=== PATIENT | female | born 1965 | race Caucasian/White ===

== ENCOUNTER 2017-11-05 21:58 | Emergency (ER) | payer OTHER ==
[2017-11-05 22:10] VITALS: BP 116/86
[2017-11-05] MEDS ORDERED: Ketorolac 30 MG/ML SDV IM ONE (22:32)
[2017-11-05] MEDS ORDERED: predniSONE 20 MG Tab PO STA (22:32)
--- NOTE | 2017-11-05 22:39 | EDM.PDOC ---
ED HPI GENERAL MEDICAL PROBLEM - General Chief Complaint: ENT Problem Stated Complaint: POSS EAR INFECTION SORE THROAT Time Seen by Provider: 11/05/17 22:15 Source of Information: Reports: Patient History Limitations: Reports: No Limitations - History of Present Illness INITIAL COMMENTS - FREE TEXT/NARRATIVE: Maribeth is a 52yo female presents ambulatory with caroline for complaints of ear pain and sore throat x 2-3 weeks. Ear pain is worse the past 7 days. She has 10/10 ear pain and "pressure" to both ears, right is worse than left. She has neck pain and tenderness down area of eustacean tube worse to the right side. She is not coughing, denies f/c/s. She has a headache with this, no n/v/d. She is fatigued and run down as she cannot sleep due to ear pain and pressure. She was seen at [facility] and rx'd flonase which has not helped; second time was rx'd antibiotic which she has taken for 4 days without improvements. Treatments [employer]: Reports: Other (see below) Other Treatments [employer]: antibiotic Ear Pain Score (Numeric/FACES): 10 - Related Data Allergies Allergy/AdvReac Type Severity Reaction Status Date / Time penicillin Allergy Hives Verified 04/04/16 08:50 bees Allergy Swelling Uncoded 06/26/15 15:38 Home Meds: Home Meds DULoxetine [Cymbalta] 30 mg PO TID 06/26/15 [History] Gabapentin [Neurontin] 900 mg PO TID 06/26/15 [History] Levothyroxine [Synthroid] 88 mcg PO DAILY 06/26/15 [History] Celecoxib [CeleBREX] 200 mg PO DAILY 11/05/17 [History] Clarithromycin [Clarithromycin] 500 mg PO BID 11/05/17 [History] Past Medical History Gastrointestinal History: Reports: Other (See Below) Other Gastrointestinal History: COLITIS, stomach ulcers Other OB/BYN History: lumpectomy x2 Musculoskeletal History: Reports: Connective Tissue Disease, Fibromyalgia Other Neuro History: fibromalgia Psychiatric History: Reports: Depression Endocrine/Metabolic History: Reports: Other (See Below) Other Endocrine/Metabolic History: Hashimotos Social & Family History - Tobacco Use Smoking Status *Q: Current Every Day Smoker Years of Tobacco use: 30 Packs/Tins Daily: 0.5 - Recreational Drug Use Recreational Drug Use: Yes ED ROS ENT - Review of Systems Review Of Systems: See Below Constitutional: Reports: Malaise, Weakness, Fatigue. Denies: Fever, Chills HEENT: Reports: Ear Pain, Sinus Problem (sinus pressure and pain worse to right side), Throat Pain. Denies: Vertigo, Vision Change Respiratory: Reports: No Symptoms. Denies: Shortness of Breath, Cough Cardiovascular: Reports: No Symptoms GI/Abdominal: Reports: No Symptoms Musculoskeletal: Reports: Neck Pain Neurological: Reports: No Symptoms ED EXAM, ENT - Physical Exam Exam: See Below Exam Limited By: No Limitations General Appearance: Alert, WD/WN, No Apparent Distress, Other (appears ill) Eye Exam: Bilateral Eye: EOMI, PERRL Ears: Normal External Exam, Normal Canal, Hearing Grossly Normal, TM Dullness, TM Erythema, TM Fluid, Other (no mastoid pain ) Nose: Normal Inspection Mouth/Throat: Normal Teeth, Pharyngeal Erythema (no exudates noted) Head: Atraumatic, Normocephalic Neck: Supple, Lymphadenopathy (L), Lymphadenopathy (R) (tender) Respiratory/Chest: No Respiratory Distress, Lungs Clear, Normal Breath Sounds Cardiovascular: Regular Rate, Rhythm, No Edema GI/Abdominal: Normal Bowel Sounds, Soft, Non-Tender (Female) Exam: Deferred Rectal (Female) Exam: Deferred Extremities: Normal Inspection Neurological: Alert, Oriented, Normal Cognition Psychiatric: Normal Affect, Normal Mood Skin: Warm, Dry Course - Vital Signs Last Recorded V/S: Last Vital Signs Temp 96.5 F 11/05/17 22:08 Pulse 74 11/05/17 22:08 Resp 20 11/05/17 22:08 BP 116/86 11/05/17 22:08 Pulse Ox 97 11/05/17 22:08 - Orders/Labs/Meds Orders: Active Orders 24 hr Category Date Time Status cefTRIAXone [Rocephin] 0.5 gm Med 11/05/17 22:45 Active Lidocaine 1% [Xylocaine 1%] 1 ml IM Q24H Medication Orders Ceftriaxone Sodium 0.5 gm/ (Lidocaine HCl 1 ml) 0 gm IM Q24H LINDA Last Admin: 11/05/17 22:51 Dose: 1.2 inj Meds: Medications Generic Name Dose Route Start Last Admin Trade Name Freq PRN Reason Stop Dose Admin Ceftriaxone Sodium 0.5 gm/ 0 gm 11/05/17 22:45 11/05/17 22:51 Lidocaine HCl 1 ml IM 1.2 inj Q24H LINDA Administration Discontinued Medications Generic Name Dose Route Start Last Admin Trade Name Satya PRN Reason Stop Dose Admin Ketorolac Tromethamine 30 mg 11/05/17 22:32 11/05/17 22:50 Toradol IM 11/05/17 22:33 30 mg ONETIME ONE Administration Prednisone 40 mg 11/05/17 22:32 11/05/17 22:50 Prednisone PO 11/05/17 22:33 40 mg NOW STA Administration Departure - Departure Time of Disposition: 22:39 Disposition: Home, Self-Care 01 Clinical Impression: Otitis media Qualifiers: Otitis media type: serous Chronicity: acute Laterality: bilateral Recurrence: not specified as recurrent Qualified Code(s): H65.03 - Acute serous otitis media , bilateral Pharyngitis Qualifiers: Pharyngitis/tonsillitis etiology: unspecified etiology Qualified Code(s): J02.9 - Acute pharyngitis, unspecified - Discharge Information Referrals: Chris Baker MD [Primary Care Provider] - Forms: ED Department Discharge Additional Instructions: Continue with prior oral antibiotic tomorrow Take medrol pack (steroid pack) as instructed Push fluids Probiotic once daily Salt water gargles Continue with flonase twice daily Motrin/tylenol for pain Follow up with PCP Dr. Baker if not improved by 72 hours. May return to work on 11/09/17--. - My Orders Last 24 Hours: My Active Orders 11/05/17 22:45 cefTRIAXone [Rocephin] 0.5 gm Lidocaine 1% [Xylocaine 1%] 1 ml IM Q24H - Assessment/Plan Last 24 Hours: My Active Orders 11/05/17 22:45 cefTRIAXone [Rocephin] 0.5 gm Lidocaine 1% [Xylocaine 1%] 1 ml IM Q24H
[2017-11-05] MEDS ORDERED: cefTRIAXone 0.5 GM, Lidocaine 1% 1 ML IM SCH ×2 (22:45)
== END 2017-11-05 23:09 | disposition home or self-care (01) ==
LOC: JD.ED 21:58
DX: H65.03 Acute serous otitis media, bilateral (principal); J02.9 Acute pharyngitis, unspecified; F17.210 Nicotine dependence, cigarettes, uncomplicated; Z88.0 Allergy status to penicillin; Z91.030 Bee allergy status
CPT/HCPCS: 96372; 99283; A9270; J0696; J1885

== ENCOUNTER 2017-11-29 14:07 | Emergency (ER) | payer OTHER, SELFPAY ==
[2017-11-29 14:15] VITALS: BP 115/78
--- NOTE | 2017-11-29 15:00 | EDM.PDOC ---
ED HPI GENERAL MEDICAL PROBLEM - General Chief Complaint: Gastrointestinal Problem Stated Complaint: VOMITING-SENT FROM CLINIC Time Seen by Provider: 11/29/17 15:00 Source of Information: Reports: Patient - History of Present Illness INITIAL COMMENTS - FREE TEXT/NARRATIVE: Patient is here for evaluation for sinus pain, ear pain as well as nausea/ vomiting. Patient reports that she has recently been on 2 courses of antibiotics, Biaxin and Levaquin as well as extended course of prednisone for her persistent sinus infection. She's feels that symptoms have not improved whatsoever. She is also stating that now she has a cough and overall feels unwell. She is not eating well due to decreased appetite, she is tolerating fluids but no she's not drinking as much as she is supposed to. She continues on the fluticasone spray but has not been taking her antihistamine. Headache Pain Score (Numeric/FACES): 7 - Related Data Allergies Allergy/AdvReac Type Severity Reaction Status Date / Time penicillin Allergy Hives Verified 04/04/16 08:50 bees Allergy Swelling Uncoded 06/26/15 15:38 Home Meds: Home Meds DULoxetine [Cymbalta] 30 mg PO TID 06/26/15 [History] Gabapentin [Neurontin] 900 mg PO TID 06/26/15 [History] Levothyroxine [Synthroid] 88 mcg PO DAILY 06/26/15 [History] Celecoxib [CeleBREX] 200 mg PO DAILY 11/05/17 [History] rOPINIRole [Requip] 0.25 mg PO BEDTIME 11/29/17 [History] Past Medical History 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 Other OB/BYN History: lumpectomy x2 Musculoskeletal History: Reports: Connective Tissue Disease, Fibromyalgia Other Neuro History: fibromalgia Psychiatric History: Reports: Depression Endocrine/Metabolic History: Reports: Other (See Below) Other Endocrine/Metabolic History: Hashimotos Social & Family History - Tobacco Use Smoking Status *Q: Current Every Day Smoker Years of Tobacco use: 3 Packs/Tins Daily: 0.4 Used Tobacco, but Quit: No Second Hand Smoke Exposure: No - Caffeine Use Caffeine Use: Reports: Coffee, Tea - Recreational Drug Use Recreational Drug Use: No ED ROS GENERAL - Review of Systems Review Of Systems: See Below Constitutional: Reports: Fever, Chills, Fatigue, Decreased Appetite. Denies: Malaise HEENT: Reports: Ear Pain, Rhinitis, Sinus Problem. Denies: Ear Discharge, Throat Pain Respiratory: Reports: Cough, Sputum. Denies: Shortness of Breath, Wheezing Cardiovascular: Reports: No Symptoms GI/Abdominal: Reports: Decreased Appetite, Nausea, Vomiting. Denies: Abdominal Pain, Black Stool, Bloody Stool, Hematemesis, Hematochezia, Melena Musculoskeletal: Reports: No Symptoms Skin: Reports: No Symptoms ED EXAM, GI/ABD - Physical Exam Exam: See Below Exam Limited By: No Limitations General Appearance: Alert, WD/WN, Mild Distress Eyes: Bilateral: Normal Appearance Ears: Normal External Exam, Normal Canal, Other (TM bulging and erythematous) Nose: Normal Inspection, Normal Mucosa, Nasal Drainage (Purulent) Throat/Mouth: Normal Inspection, Normal Oropharynx Neck: Normal Inspection, Supple, Non-Tender Respiratory/Chest: No Respiratory Distress, Crackles (Right lung base). No: Wheezing Cardiovascular: Normal Peripheral Pulses, Regular Rate, Rhythm, No Murmur Neurological: Alert, Oriented Psychiatric: Normal Affect, Normal Mood Skin Exam: Warm, Dry, Intact Course - Vital Signs Last Recorded V/S: Last Vital Signs Temp 97 F 11/29/17 14:11 Pulse 90 11/29/17 14:11 Resp 22 H 11/29/17 14:11 BP 115/78 11/29/17 14:11 Pulse Ox 99 11/29/17 14:11 - Orders/Labs/Meds Orders: Active Orders 24 hr Category Date Time Status Sodium Chloride 0.9% [Normal Saline] 1,000 ml Med 11/29/17 17:39 Active IV ONETIME Sodium Chloride 0.9% [Saline Flush] Med 11/29/17 16:41 Active 10 ml FLUSH ONETIME PRN Medication Orders Sodium Chloride (Normal Saline) 1,000 mls @ 250 mls/hr IV ONETIME ONE Stop: 11/29/17 21:38 Last Admin: 11/29/17 17:57 Dose: 250 mls/hr Sodium Chloride (Saline Flush) 10 ml FLUSH ONETIME PRN PRN Reason: IV FLUSH Last Admin: 11/29/17 17:10 Dose: 10 ml Labs: Laboratory Tests 11/29/17 11/29/17 Range/Units 14:10 14:10 WBC 14.66 H (3.98-10.04) K/mm3 RBC 4.41 (3.98-5.22) M/mm3 Hgb 13.3 (11.2-15.7) gm/L Hct 40.2 (34.1-44.9) % MCV 91.2 (79.4-94.8) fl MCH 30.2 (25.6-32.2) pg MCHC 33.1 (32.2-35.5) g/dl RDW Std Deviation 44.6 (36.4-46.3) fL Plt Count 490 H (182-369) K/mm3 MPV 10.2 (9.4-12.3) fl Neutrophils % (Manual) 67 H (40-60) % Band Neutrophils % 0 (0-10) % Lymphocytes % (Manual) 26 (20-40) % Atypical Lymphs % 0 % Monocytes % (Manual) 5 (2-10) % Eosinophils % (Manual) 1 (0.7-5.8) % Basophils % (Manual) 1 (0.1-1.2) Platelet Estimate Adequate RBC Morph Comment Normal Sodium 135 L (136-145) mEq/L Potassium 4.2 (3.5-5.1) mEq/L Chloride 99 (98-107) mEq/L Carbon Dioxide 30 (21-32) mEq/L Anion Gap 10.2 (5-15) BUN 9 (7-18) mg/dL Creatinine 0.7 (0.55-1.02) mg/dL Est Cr Clr Drug Dosing 74.35 mL/min Estimated GFR (MDRD) > 60 (>60) mL/min BUN/Creatinine Ratio 12.9 L (14-18) Glucose 124 H (74-106) mg/dL Calcium 9.8 (8.5-10.1) mg/dL Total Bilirubin 0.5 (0.2-1.0) mg/dL AST 16 (15-37) U/L ALT 22 (14-59) U/L Alkaline Phosphatase 73 (46-116) U/L C-Reactive Protein 8.8 H* (<1.0) mg/dL Total Protein 8.3 H (6.4-8.2) g/dl Albumin 3.6 (3.4-5.0) g/dl Globulin 4.7 gm/dL Albumin/Globulin Ratio 0.8 L (1-2) Meds: Medications Generic Name Dose Route Start Last Admin Trade Name Freq PRN Reason Stop Dose Admin Sodium Chloride 1,000 mls @ 250 mls/hr 11/29/17 17:39 11/29/17 17:57 Normal Saline IV 11/29/17 21:38 250 mls/hr ONETIME ONE Administration Sodium Chloride 10 ml 11/29/17 16:41 11/29/17 17:10 Saline Flush FLUSH 10 ml ONETIME PRN Administration IV FLUSH Discontinued Medications Generic Name Dose Route Start Last Admin Trade Name Freq PRN Reason Stop Dose Admin Sodium Chloride 1,000 mls @ 999 mls/hr 11/29/17 15:15 11/29/17 15:22 Normal Saline IV 11/29/17 16:15 999 mls/hr ONETIME ONE Administration Iopamidol 100 ml 11/29/17 16:41 11/29/17 17:10 Isovue-300 (61%) IVPUSH 11/29/17 16:42 80 ml ONETIME ONE Administration Ketorolac Tromethamine 30 mg 11/29/17 15:15 11/29/17 15:24 Toradol IVPUSH 11/29/17 15:16 30 mg ONETIME ONE Administration Lorazepam 1 mg 11/29/17 16:26 11/29/17 16:47 Ativan PO 11/29/17 16:27 1 mg ONETIME ONE Administration Ondansetron HCl 4 mg 11/29/17 15:15 11/29/17 15:22 Zofran IVPUSH 11/29/17 15:16 4 mg ONETIME ONE Administration - Re-Assessments/Exams Free Text/Narrative Re-Assessment/Exam: Patient continues to have bilateral AOM despite 2 courses of antibiotics and prednisone. Coarse lung sounds to the right base. WBC 14,660 with 67% neutrophils and no bands. CRP is 8.8. Chest x-ray demonstrates slight increased density in the right cardiophrenic angle as well as pleural thickening in the left apex. Will get a sinus CT as well as CT of the chest with contrast to further evaluate. 11/29/17 16:35 Patient feeling significantly better with Zofran for the nausea as well as IV fluids. She is resting comfortably in bed and requesting to go home. Referral will be entered for patient's persistent otitis media infection from her PCP. She does have persistent congestion as well the CT of the sinuses demonstrated no abnormality. CT of the chest demonstrated: #1 density within the left lung apex as well as smaller parenchymal density within the right lung apex. Additional parenchymal density within the right cardiophrenic angle is confirmed. Uncertain if this represents prominent areas of scarring or could represent neoplastic change. Recommend PET scan for further to further evaluate. #2 small hiatal hernia is noted. #3 no additional abnormalities seen on the CT of the chest. PET scan will be ordered through the clinic. With infectious symptoms clinically will treat with 1 more week of Levaquin. Patient will follow up with PCP next week or certainly return to the emergency room if needed sooner. 11/29/17 19:26 Departure - Departure Time of Disposition: 19:24 Disposition: Home, Self-Care 01 Condition: Fair Clinical Impression: Recurrent AOM (acute otitis media) of both ears, Nausea, Lung nodule - Discharge Information Referrals: Ana Wheat [employer] [Primary Care Provider] - Forms: ED Department Discharge Additional Instructions: Take the full course of Levaquin. I recommended probiotic with this to help with preventing diarrhea. Lots of rest, fluids. Ibuprofen or Tylenol as needed for pain. Continue antihistamine and Fluticasone spray. You should be contacted by the clinic with an appointment for a PET scan as well as an consult with ENT. If you do not hear from the clinic by 2 PM tomorrow please call in and discuss this with nursing. Follow-up with your PCP next week or certainly return to the emergency room if needed. - My Orders Last 24 Hours: My Active Orders 11/29/17 16:41 Sodium Chloride 0.9% [Saline Flush] 10 ml FLUSH ONETIME PRN 11/29/17 17:39 Sodium Chloride 0.9% [Normal Saline] 1,000 ml IV ONETIME - Assessment/Plan Last 24 Hours: My Active Orders 11/29/17 16:41 Sodium Chloride 0.9% [Saline Flush] 10 ml FLUSH ONETIME PRN 11/29/17 17:39 Sodium Chloride 0.9% [Normal Saline] 1,000 ml IV ONETIME
[2017-11-29] MEDS ORDERED: Ondansetron 4 MG/2 ML SDV IVPUSH ONE (15:15)
[2017-11-29] MEDS ORDERED: Sodium Chloride 0.9% 1,000 ML IV ONE ×2 (15:15→17:39)
[2017-11-29] MEDS ORDERED: Ketorolac 30 MG/ML SDV IVPUSH ONE (15:15)
--- NOTE | 2017-11-29 16:14 | CR ---
Chest: Two views of the chest were obtained. Comparison: No prior chest x-ray. Slight increased density is noted within the right cardiophrenic angle. Apical pleural thickening is seen on the left side. Lungs otherwise are clear. Bony structures are unremarkable. Heart size and mediastinum are normal. Impression: 1. Apical pleural thickening on the left side as well as slight increased density within the right cardiophrenic angle. Contrast enhanced chest CT recommended to further evaluate. Diagnostic code #9
[2017-11-29] MEDS ORDERED: LORazepam 1 MG Tab PO ONE (16:26)
[2017-11-29] MEDS ORDERED: Sodium Chloride 0.9% 10 ML Syringe FLUSH PRN (16:41)
[2017-11-29] MEDS ORDERED: Iopamidol 612 MG/ML 100 ML Bottle IVPUSH ONE (16:41)
--- NOTE | 2017-11-29 17:55 | CT ---
CT paranasal sinuses Technique: Multiple axial sections through the paranasal sinuses were obtained. Reconstructed coronal and sagittal images were obtained. Findings: Paranasal sinuses are clear. No mucosal thickening or air-fluid levels are seen. Mastoid sinuses are also clear. Middle ear cavities are clear. Impression: 1. No abnormality is seen on CT study of the paranasal sinuses. Diagnostic code #1
--- NOTE | 2017-11-29 17:59 | CT ---
CT chest Technique: Multiple axial sections were obtained from above the lung apices inferiorly through the lung bases. Intravenous contrast was utilized. Comparison: Recent chest x-ray performed earlier on the same day (3:19 PM). Findings: Parenchymal density is noted within the left lung apex. Smaller parenchymal density is noted within the right lung apex. Focal parenchymal density also seen within the right cardiophrenic angle. No mediastinal adenopathy is seen. No pericardial thickening is seen. Small portion of the visualized lung apices are clear. Lungs otherwise are clear. Small hiatal hernia is present. Bone window settings were reviewed which appears within normal limits for the patient's age. Impression: 1. Density within left lung apex as well as smaller parenchymal density within the right lung apex. Additional parenchymal density within right cardiophrenic angle is confirmed. Uncertain if this represents prominent areas of scarring or could represent neoplastic change. Recommend PET imaging to further evaluate. 2. Small hiatal hernia is noted. 3. No additional abnormality is seen on CT study of the chest. Diagnostic code #9
== END 2017-11-29 19:45 | disposition home or self-care (01) ==
LOC: JD.ED 14:07
DX: H66.93 Otitis media, unspecified, bilateral (principal); R91.1 Solitary pulmonary nodule; F17.210 Nicotine dependence, cigarettes, uncomplicated; Z88.0 Allergy status to penicillin; Z91.030 Bee allergy status; Z79.899 Other long term (current) drug therapy
CPT/HCPCS: 36415; 70486; 71046; 71260; 80053; 85025; 86140; 96361; 96374; 96375; 99284; A9270; J1885; J2405; J7040; J7050; Q9967

== ENCOUNTER 2017-12-11 03:15 | Emergency (ER) | payer OTHER ==
[2017-12-11 03:22] VITALS: BP 106/76
[2017-12-11] MEDS ORDERED: Sodium Chloride 0.9% 10 ML Syringe FLUSH PRN (03:33)
[2017-12-11] MEDS ORDERED: HYDROmorphone 1 MG/ML Syringe IVPUSH ONE (03:34)
[2017-12-11] MEDS ORDERED: Aspirin 81 MG Tab.Chew PO ONE (03:34)
--- NOTE | 2017-12-11 04:36 | EDM.PDOC ---
ED HPI GENERAL MEDICAL PROBLEM - General Chief Complaint: Chest Pain Stated Complaint: CHEST PAINS Time Seen by Provider: 12/11/17 03:26 Source of Information: Reports: Patient History Limitations: Reports: No Limitations - History of Present Illness INITIAL COMMENTS - FREE TEXT/NARRATIVE: The patient presents with crushing chest pain. This started early this morning at 2am. It work her up. She has some shortness of breath with it. The pain radiates into both shoulders. She has no fever, chills, cough, abdominal pain, nausea or vomiting. The patient was recently seen here and a CT of her chest was done. It did show lesions in her chest that were thought of to be neoplastic. She had a follow up PET scan and it did confirm this could be a neoplasm. The next step is a biopsy. She quit smoking 2 days ago. Onset: Sudden Duration: Hour(s): (2am) Location: Reports: Chest Quality: Reports: Other (crushing) Severity: Severe Improves with: Reports: None Worsens with: Reports: None Context: Reports: Other (sleeping) Associated Symptoms: Reports: Chest Pain, Shortness of Breath. Denies: Cough, Fever/Chills, Headaches, Nausea/Vomiting Chest Pain Score (Numeric/FACES): 10 - Related Data Allergies Allergy/AdvReac Type Severity Reaction Status Date / Time penicillin Allergy Hives Verified 12/11/17 03:19 bees Allergy Swelling Uncoded 12/11/17 03:19 Home Meds: Home Meds DULoxetine [Cymbalta] 30 mg PO TID 06/26/15 [History] Gabapentin [Neurontin] 900 mg PO TID 06/26/15 [History] Levothyroxine [Synthroid] 88 mcg PO DAILY 06/26/15 [History] Celecoxib [CeleBREX] 200 mg PO DAILY 11/05/17 [History] rOPINIRole [Requip] 0.25 mg PO BEDTIME 11/29/17 [History] LORazepam [Ativan] 0.5 mg PO Q8H PRN #20 tab 12/11/17 [Rx] Past Medical History HEENT History: Reports: Otitis Media Respiratory History: Reports: Other (See Below) Other Respiratory History: "spots on lungs" Needs to have biopsy done. 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 Other OB/BYN History: lumpectomy x2 Musculoskeletal History: Reports: Connective Tissue Disease, Fibromyalgia Other Neuro History: fibromalgia Psychiatric History: Reports: Depression Endocrine/Metabolic History: Reports: Other (See Below) Other Endocrine/Metabolic History: Hashimotos - Past Surgical History Musculoskeletal Surgical History: Reports: Arthroscopic Knee Social & Family History - Tobacco Use Smoking Status *Q: Former Smoker Years of Tobacco use: 3 Packs/Tins Daily: 0.4 Used Tobacco, but Quit: Yes Month Tobacco Last Used: 11/2017 Second Hand Smoke Exposure: No - Caffeine Use Caffeine Use: Reports: Coffee, Tea - Recreational Drug Use Recreational Drug Use: No ED ROS GENERAL - Review of Systems Review Of Systems: See Below Constitutional: Reports: No Symptoms HEENT: Reports: No Symptoms Respiratory: Reports: Shortness of Breath Cardiovascular: Reports: Chest Pain Endocrine: Reports: No Symptoms GI/Abdominal: Reports: No Symptoms : Reports: No Symptoms Musculoskeletal: Reports: No Symptoms ED EXAM, GENERAL - Physical Exam Exam: See Below Exam Limited By: No Limitations General Appearance: Alert, No Apparent Distress Ears: Normal External Exam Nose: Normal Inspection Head: Atraumatic, Normocephalic Neck: Normal Inspection Respiratory/Chest: No Respiratory Distress, Lungs Clear, Normal Breath Sounds Cardiovascular: Regular Rate, Rhythm, No Edema, No Murmur GI/Abdominal: Soft, Non-Tender, No Organomegaly, No Mass Back Exam: Normal Inspection Extremities: Normal Inspection EKG INTERPRETATION EKG Date: 12/11/17 Time: 03:24 Rhythm: NSR Rate (Beats/Min): 92 [place]: Normal P-Wave: Present QRS: Normal ST-T: Normal QT: Normal Course - Vital Signs Last Recorded V/S: Last Vital Signs Temp 96.9 F 12/11/17 03:19 Pulse 102 H 12/11/17 03:19 Resp 20 12/11/17 03:19 BP 106/76 12/11/17 03:19 Pulse Ox 98 12/11/17 03:19 - Orders/Labs/Meds Orders: Active Orders 24 hr Category Date Time Status Cardiac Monitoring [RC] . DIRECTED Care 12/11/17 03:33 Active EKG Documentation Completion [RC] ASDIRECTED Care 12/11/17 06:12 Active EKG Documentation Completion [RC] STAT Care 12/11/17 03:33 Active Oxygen Therapy [RC] PRN Care 12/11/17 03:33 Active Peripheral IV Care [RC] . DIRECTED Care 12/11/17 03:33 Active Ang Chest [CT] Stat Exams 12/11/17 04:42 Taken Chest 1V Frontal [CR] Stat Exams 12/11/17 03:33 Taken Sodium Chloride 0.9% [Normal Saline] 100 ml Med 12/11/17 05:15 Active IV ASDIRECTED Sodium Chloride 0.9% [Saline Flush] Med 12/11/17 03:33 Active 10 ml FLUSH ASDIRECTED PRN Peripheral IV Insertion Adult [OM.PC] Stat Oth 12/11/17 03:33 Ordered EKG 12 Lead [EK] Stat Ther 12/11/17 06:11 Ordered Medication Orders Sodium Chloride (Normal Saline) 100 mls @ 60 mls/hr IV ASDIRECTED LINDA Last Admin: 12/11/17 05:24 Dose: 60 mls/hr Sodium Chloride (Saline Flush) 10 ml FLUSH ASDIRECTED PRN PRN Reason: Keep Vein Open Last Admin: 12/11/17 03:45 Dose: 10 ml Labs: Laboratory Tests 12/11/17 12/11/17 12/11/17 Range/Units 03:31 03:31 03:31 WBC 13.28 H (3.98-10.04) K/mm3 RBC 4.31 (3.98-5.22) M/mm3 Hgb 12.7 (11.2-15.7) gm/L Hct 38.5 (34.1-44.9) % MCV 89.3 (79.4-94.8) fl MCH 29.5 (25.6-32.2) pg MCHC 33.0 (32.2-35.5) g/dl RDW Std Deviation 42.6 (36.4-46.3) fL Plt Count 793 H (182-369) K/mm3 MPV 8.8 L (9.4-12.3) fl Neut % (Auto) 64.8 (34.0-71.1) % Lymph % (Auto) 11.1 L (19.3-51.7) % [place] % (Auto) 20.2 H (4.7-12.5) % Eos % (Auto) 1.5 (0.7-5.8) Baso % (Auto) 0.4 (0.1-1.2) % Neut # (Auto) 8.62 H (1.56-6.13) K/mm3 Lymph # (Auto) 1.47 (1.18-3.74) K/mm3 [place] # (Auto) 2.68 H (0.24-0.36) K/mm3 Eos # (Auto) 0.20 (0.04-0.36) K/mm3 Baso # (Auto) 0.05 (0.01-0.08) K/mm3 Manual Slide Review Abnormal smear D-Dimer, Quantitative 1.50 H (0.19-0.59) mg/L Sodium 141 (136-145) mEq/L Potassium 4.1 (3.5-5.1) mEq/L Chloride 104 (98-107) mEq/L Carbon Dioxide 26 (21-32) mEq/L Anion Gap 15.1 H (5-15) BUN 10 (7-18) mg/dL Creatinine 0.8 (0.55-1.02) mg/dL Est Cr Clr Drug Dosing 65.06 mL/min Estimated GFR (MDRD) > 60 (>60) mL/min BUN/Creatinine Ratio 12.5 L (14-18) Glucose 120 H (74-106) mg/dL Calcium 9.0 (8.5-10.1) mg/dL Total Bilirubin 0.2 (0.2-1.0) mg/dL AST 17 (15-37) U/L ALT 21 (14-59) U/L Alkaline Phosphatase 96 (46-116) U/L Troponin I < 0.017 (0.00-0.056) ng/mL Total Protein 7.7 (6.4-8.2) g/dl Albumin 2.7 L (3.4-5.0) g/dl Globulin 5.0 gm/dL Albumin/Globulin Ratio 0.5 L (1-2) 12/11/17 Range/Units 06:25 WBC (3.98-10.04) K/mm3 RBC (3.98-5.22) M/mm3 Hgb (11.2-15.7) gm/L Hct (34.1-44.9) % MCV (79.4-94.8) fl MCH (25.6-32.2) pg MCHC (32.2-35.5) g/dl RDW Std Deviation (36.4-46.3) fL Plt Count (182-369) K/mm3 MPV (9.4-12.3) fl Neut % (Auto) (34.0-71.1) % Lymph % (Auto) (19.3-51.7) % [place] % (Auto) (4.7-12.5) % Eos % (Auto) (0.7-5.8) Baso % (Auto) (0.1-1.2) % Neut # (Auto) (1.56-6.13) K/mm3 Lymph # (Auto) (1.18-3.74) K/mm3 [place] # (Auto) (0.24-0.36) K/mm3 Eos # (Auto) (0.04-0.36) K/mm3 Baso # (Auto) (0.01-0.08) K/mm3 Manual Slide Review D-Dimer, Quantitative (0.19-0.59) mg/L Sodium (136-145) mEq/L Potassium (3.5-5.1) mEq/L Chloride (98-107) mEq/L Carbon Dioxide (21-32) mEq/L Anion Gap (5-15) BUN (7-18) mg/dL Creatinine (0.55-1.02) mg/dL Est Cr Clr Drug Dosing mL/min Estimated GFR (MDRD) (>60) mL/min BUN/Creatinine Ratio (14-18) Glucose (74-106) mg/dL Calcium (8.5-10.1) mg/dL Total Bilirubin (0.2-1.0) mg/dL AST (15-37) U/L ALT (14-59) U/L Alkaline Phosphatase (46-116) U/L Troponin I < 0.017 (0.00-0.056) ng/mL Total Protein (6.4-8.2) g/dl Albumin (3.4-5.0) g/dl Globulin gm/dL Albumin/Globulin Ratio (1-2) Meds: Medications Generic Name Dose Route Start Last Admin Trade Name Freq PRN Reason Stop Dose Admin Sodium Chloride 100 mls @ 60 mls/hr 12/11/17 05:15 12/11/17 05:24 Normal Saline IV 60 mls/hr ASDIRECTED LINDA Administration Sodium Chloride 10 ml 12/11/17 03:33 12/11/17 03:45 Saline Flush FLUSH 10 ml ASDIRECTED PRN Administration Keep Vein Open Discontinued Medications Generic Name Dose Route Start Last Admin Trade Name Satya PRN Reason Stop Dose Admin Aspirin 324 mg 12/11/17 03:34 12/11/17 03:42 Aspirin PO 12/11/17 03:35 324 mg ONETIME ONE Administration Hydromorphone HCl 1 mg 12/11/17 03:34 12/11/17 03:43 Dilaudid IVPUSH 12/11/17 03:35 1 mg ONETIME ONE Administration Iopamidol 100 ml 12/11/17 05:08 12/11/17 05:24 Isovue-370 (76%) IVPUSH 12/11/17 05:09 100 ml ONETIME ONE Administration Lorazepam 0.5 mg 12/11/17 06:12 12/11/17 06:17 Ativan IVPUSH 12/11/17 06:13 0.5 mg ONETIME ONE Administration Sodium Chloride 10 ml 12/11/17 05:08 12/11/17 05:24 Saline Flush FLUSH 12/11/17 05:09 10 ml ONETIME ONE Administration - Re-Assessments/Exams Free Text/Narrative Re-Assessment/Exam: 12/11/17 04:37 I ordered an IV saline lock, EKG, CXR, labs, aspirin and dilaudid 1mg IV. Her EKG shows a NSR with no acute changes. Her CXR shows a lesion to each apex and a lesion to the right perihilar region. Her WBC was slightly elevated at 13.28. Her CMP looks good. Her troponin is negative. Her D-dimer was elevated at 1.5. I have ordered a CT angio of her chest. 12/11/17 06:[address] shows no central or proximal segmental pulmonary embolus. Given reported clinical history of lung cancer, findings could be consistent with lung cancer with metastasis. Possible multifocal pneumonia. Mediastinal and bilateral hilar lymphadenopathy. I have ordere a repeat troponin, EKG and ativan 0.5mg IV. This is looking more lick anxiety. She is dealing with a lot. 12/11/17 06:35 Her repeat EKG shows a NSR with no acute changes. 12/11/17 07:20 Her repeat troponin was negative. I will discharge her home on some ativan. Departure - Departure Time of Disposition: 07:10 Disposition: Home, Self-Care 01 Condition: Good Clinical Impression: Atypical chest pain, Anxiety Prescriptions: LORazepam [Ativan] 0.5 mg PO Q8H PRN #20 tab PRN Reason: Anxiety Referrals: PCP,None [Ordering Only Provider] - Chris Baker MD [Primary Care Provider] - Forms: ED Department Discharge Additional Instructions: Take the ativan eery 8 hours as needed for anxiety. Follow up with Dr Baker. Please return if you are worse. - My Orders Last 24 Hours: My Active Orders 12/11/17 03:33 Cardiac Monitoring [RC] . DIRECTED EKG Documentation Completion [RC] STAT Oxygen Therapy [RC] PRN Peripheral IV Care [RC] . DIRECTED Chest 1V Frontal [CR] Stat Sodium Chloride 0.9% [Saline Flush] 10 ml FLUSH ASDIRECTED PRN Peripheral IV Insertion Adult [OM.PC] Stat 12/11/17 04:42 Ang Chest [CT] Stat 12/11/17 05:15 Sodium Chloride 0.9% [Normal Saline] 100 ml IV ASDIRECTED 12/11/17 06:11 EKG 12 Lead [EK] Stat 12/11/17 06:12 EKG Documentation Completion [RC] ASDIRECTED - Assessment/Plan Last 24 Hours: My Active Orders 12/11/17 03:33 Cardiac Monitoring [RC] . DIRECTED EKG Documentation Completion [RC] STAT Oxygen Therapy [RC] PRN Peripheral IV Care [RC] . DIRECTED Chest 1V Frontal [CR] Stat Sodium Chloride 0.9% [Saline Flush] 10 ml FLUSH ASDIRECTED PRN Peripheral IV Insertion Adult [OM.PC] Stat 12/11/17 04:42 Ang Chest [CT] Stat 12/11/17 05:15 Sodium Chloride 0.9% [Normal Saline] 100 ml IV ASDIRECTED 12/11/17 06:11 EKG 12 Lead [EK] Stat 12/11/17 06:12 EKG Documentation Completion [RC] ASDIRECTED
[2017-12-11] MEDS ORDERED: Sodium Chloride 0.9% 10 ML Syringe FLUSH ONE (05:08)
[2017-12-11] MEDS ORDERED: Iopamidol 755 Mg/ML 100 ML Bottle IVPUSH ONE (05:08)
[2017-12-11] MEDS ORDERED: Sodium Chloride 0.9% 100 ML IV SCH (05:15)
[2017-12-11] MEDS ORDERED: LORazepam 2 MG/ML SDV IVPUSH ONE (06:12)
--- NOTE | 2017-12-11 07:32 | CT ---
CT chest Technique: Multiple axial sections through the chest were obtained. Intravenous contrast was utilized. Study has been performed as a pulmonary angiogram protocol. Comparison: Prior chest CT of 11/29/17. Findings: Pulmonary arteries are fairly well-opacified. No filling defects are seen to indicate pulmonary embolism. Multiple small mediastinal lymph nodes are seen. These are questionably more prominent than on previous chest CT. No pericardial thickening is seen. Small portion of the visualized upper abdominal structures are within normal limits. Mass-like parenchymal density is seen within the right cardiophrenic angle within the right middle lobe measuring about 4.2 cm. Nodular opacity is seen within the right lower lung adjacent to the pleura measuring 1.6 cm. Slight atelectasis is seen within both lung bases. Mass-like opacities are identified within the upper right and upper left lungs. On the left side this measures about 5.5 cm with an adjacent nodule measuring 1.5 cm. On the right side this opacity measures about 3.7 cm. These findings appear more prominent than on prior exam. Bone window settings were reviewed which show no acute osseous abnormality. Impression: 1. Mass-like densities within the right middle lobe as well as both upper lungs. These appear more prominent than on prior study. Findings presumably are neoplastic in etiology. 2. No findings of pulmonary embolism. 3. Slightly prominent mediastinal lymph nodes which are more prominent than on prior study. Diagnostic code #9 I agree with preliminary report issued by [facility] ([facility] preliminary report dictated on 12/11/17, 6:56 AM Central Time)
--- NOTE | 2017-12-11 07:32 | CR ---
Chest: Portable view of the chest was obtained. Comparison: No prior chest x-ray, previous chest CT of 11/29/17. Increased density is seen within both lung apices worse on the left side as well as increased density within the right cardiophrenic angle. These findings were described on prior chest CT. Heart size and mediastinum are normal. Bony structures are grossly intact. Impression: 1. Increased density within both lung apices as well as right cardiophrenic angle. These were seen on prior chest CT and are suspicious for neoplastic change. Diagnostic code #9
== END 2017-12-11 07:53 | disposition home or self-care (01) ==
LOC: JD.ED 03:15
DX: R07.89 Other chest pain (principal); F41.9 Anxiety disorder, unspecified; Z87.891 Personal history of nicotine dependence; Z79.899 Other long term (current) drug therapy; Z88.0 Allergy status to penicillin; Z91.030 Bee allergy status
CPT/HCPCS: 36415; 71045; 71275; 80053; 84484; 85025; 85379; 93005; 96374; 96375; 99285; A9270; J1170; J2060; J7030; J7050; Q9967; 93010; 99284-25

== ENCOUNTER 2017-12-31 05:17 | Emergency (ER) | payer OTHER ==
[2017-12-31] MEDS ORDERED: HYDROmorphone 1 MG/ML Syringe IVPUSH ONE ×2 (06:23→09:35)
[2017-12-31] MEDS ORDERED: LORazepam 2 MG/ML SDV IVPUSH ONE (06:23)
--- NOTE | 2017-12-31 06:24 | EDM.PDOC ---
ED HPI GENERAL MEDICAL PROBLEM - General Chief Complaint: Lower Extremity Injury/Pain Stated Complaint: [facility] Time Seen by Provider: 12/31/17 05:47 Source of Information: Reports: Patient, Family History Limitations: Reports: No Limitations - History of Present Illness INITIAL COMMENTS - FREE TEXT/NARRATIVE: This is a 52-year-old female. She has several things going on with her that is making her upset. 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 Then she's got an ear infection the turn into a mastoid infection and she is on doxycycline. She also has fibromyalgia and it's acting up despite being on gabapentin and Cymbalta so she comes to the ER by ambulance because she can't walk due to the pain. When I walk into the room she is sobbing and crying with her face hidden. Once I started talking to her and distracting her she quit crying and she actually turned over in bed but she vented her frustration at not having answers about her all her problems and why people cannot cure her. I indicated I don't have the answers either but I will try to help her. Bilateral Lower Leg Pain Score (Numeric/FACES): 10 - Related Data Allergies Allergy/AdvReac Type Severity Reaction Status Date / Time penicillin Allergy Hives Verified 12/31/17 05:24 bees Allergy Swelling Uncoded 12/31/17 05:24 Home Meds: Home Meds DULoxetine [Cymbalta] 30 mg PO TID 06/26/15 [History] Gabapentin [Neurontin] 900 mg PO TID 06/26/15 [History] Levothyroxine [Synthroid] 88 mcg PO DAILY 06/26/15 [History] Celecoxib [CeleBREX] 200 mg PO DAILY 11/05/17 [History] rOPINIRole [Requip] 0.25 mg PO BEDTIME 11/29/17 [History] LORazepam [Ativan] 0.5 mg PO Q8H PRN #20 tab 12/11/17 [Rx] Doxycycline [Vibramycin] 100 mg PO BID 12/31/17 [History] Hydrocodone/Acetaminophen [Hydrocodon-Acetaminophen 5-325] 1 each PO Q6H PRN # 12 tablet 12/31/17 [Rx] LORazepam [Ativan] 0.5 mg PO Q8H PRN #10 tab 12/31/17 [Rx] Orphenadrine [Norflex] 100 mg PO BID PRN #12 tab.er 12/31/17 [Rx] Past Medical History HEENT History: Reports: Otitis Media Respiratory History: Reports: Other (See Below) Other Respiratory History: "spots on lungs" Needs to have biopsy done. 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 Other OB/BYN History: lumpectomy x2 Musculoskeletal History: Reports: Connective Tissue Disease, Fibromyalgia Other Neuro History: fibromalgia Psychiatric History: Reports: Depression Endocrine/Metabolic History: Reports: Other (See Below) Other Endocrine/Metabolic History: Hashimotos - Past Surgical History Musculoskeletal Surgical History: Reports: Arthroscopic Knee Social & Family History - Tobacco Use Smoking Status *Q: Light Tobacco Smoker Years of Tobacco use: 3 Packs/Tins Daily: 0.1 Used Tobacco, but Quit: Yes Month Tobacco Last Used: 11/2017 Second Hand Smoke Exposure: No - Caffeine Use Caffeine Use: Reports: Coffee - Recreational Drug Use Recreational Drug Use: No Review of Systems - Review of Systems Review Of Systems: See Below Constitutional: Denies: Chills, Fever Eyes: Reports: No Symptoms Ears: Reports: Pain, Purulent Discharge, Other (Mastoids infection) Nose: Reports: No Symptoms Mouth/Throat: Reports: Other (Sore throat on and off) Respiratory: Reports: No Symptoms Cardiovascular: Reports: No Symptoms GI/Abdominal: Reports: No Symptoms Genitourinary: Reports: No Symptoms Musculoskeletal: Reports: Other (Leg pain the entire legs and the middle of her back pain from her fibromyalgia) Skin: Reports: No Symptoms Neurological: Reports: No Symptoms Psychiatric: Reports: Depression, Anxiety ED EXAM, GENERAL - Physical Exam Exam: See Below Exam Limited By: No Limitations General Appearance: Alert, WD/WN, Mild Distress, Other (Tearful and anxious) Eye Exam: Bilateral Eye: Normal Inspection Ears: Normal External Exam, Normal Canal, Normal TMs, Other (Even though they state that there is drainage from the ears I did not see any in the ears bilaterally today) Nose: Normal Inspection Throat/Mouth: Normal Inspection, Normal Lips, Normal Voice, No Airway Compromise Head: Normocephalic Neck: Other (She moves her neck freely) Respiratory/Chest: No Respiratory Distress, Lungs Clear, Normal Breath Sounds Cardiovascular: Regular Rate, Rhythm, No Murmur GI/Abdominal: Soft, Non-Tender Back Exam: Other (She complains of pain in her back between the shoulder blades yet she will move her back, palpation of that area seems to have hypersensitive skin) Extremities: Normal Inspection, Other (She complains of global leg pain and difficulty in moving them due to the pain but she moves her upper extremities freely) Neurological: Alert, Oriented Psychiatric: Anxious, Depressed Mood, Tearful Skin Exam: Warm, Dry Course - Vital Signs Last Recorded V/S: Last Vital Signs Temp 99.1 F 12/31/17 05:26 Pulse 103 H 12/31/17 05:26 Resp 16 12/31/17 05:26 BP 119/66 12/31/17 05:26 Pulse Ox 98 12/31/17 05:26 - Orders/Labs/Meds Orders: Active Orders 24 hr Category Date Time Status Sodium Chloride 0.9% [Normal Saline] 1,000 ml Med 12/31/17 06:30 Active IV ASDIRECTED cefTRIAXone [Rocephin] 2 gm Med 12/31/17 08:24 Ordered Sodium Chloride 0.9% [Normal Saline] 100 ml IV ONETIME Medication Orders Sodium Chloride (Normal Saline) 1,000 mls @ 1,000 mls/hr IV ASDIRECTED LINDA Last Admin: 12/31/17 06:35 Dose: 1,000 mls/hr Labs: Laboratory Tests 12/31/17 12/31/17 Range/Units 06:26 06:26 WBC 21.66 H (3.98-10.04) K/mm3 RBC 3.93 L (3.98-5.22) M/mm3 Hgb 11.0 L (11.2-15.7) gm/L Hct 33.5 L (34.1-44.9) % MCV 85.2 (79.4-94.8) fl MCH 28.0 (25.6-32.2) pg MCHC 32.8 (32.2-35.5) g/dl RDW Std Deviation 42.2 (36.4-46.3) fL Plt Count 859 H* (182-369) K/mm3 MPV 8.1 L (9.4-12.3) fl Neut % (Auto) 73.4 H (34.0-71.1) % Lymph % (Auto) 6.0 L (19.3-51.7) % [place] % (Auto) 12.1 (4.7-12.5) % Eos % (Auto) 4.3 (0.7-5.8) Baso % (Auto) 0.3 (0.1-1.2) % Neut # (Auto) 15.89 H (1.56-6.13) K/mm3 Lymph # (Auto) 1.29 (1.18-3.74) K/mm3 [place] # (Auto) 2.63 H (0.24-0.36) K/mm3 Eos # (Auto) 0.94 H (0.04-0.36) K/mm3 Baso # (Auto) 0.06 (0.01-0.08) K/mm3 Manual Slide Review Abnormal smear Sodium 134 L (136-145) mEq/L Potassium 4.3 (3.5-5.1) mEq/L Chloride 98 (98-107) mEq/L Carbon Dioxide 26 (21-32) mEq/L Anion Gap 14.3 (5-15) BUN 6 L (7-18) mg/dL Creatinine 0.6 (0.55-1.02) mg/dL Est Cr Clr Drug Dosing 86.75 mL/min Estimated GFR (MDRD) > 60 (>60) mL/min BUN/Creatinine Ratio 10.0 L (14-18) Glucose 108 H (74-106) mg/dL Calcium 8.9 (8.5-10.1) mg/dL Total Bilirubin 0.3 (0.2-1.0) mg/dL AST 20 (15-37) U/L ALT 19 (14-59) U/L Alkaline Phosphatase 96 (46-116) U/L Total Protein 7.7 (6.4-8.2) g/dl Albumin 2.2 L (3.4-5.0) g/dl Globulin 5.5 gm/dL Albumin/Globulin Ratio 0.4 L (1-2) TSH 3rd Generation 4.203 H (0.358-3.74) uIU/mL Meds: Medications Generic Name Dose Route Start Last Admin Trade Name Freq PRN Reason Stop Dose Admin Sodium Chloride 1,000 mls @ 1,000 mls/hr 12/31/17 06:30 12/31/17 06:35 Normal Saline IV 1,000 mls/hr ASDIRECTED LINDA Administration Discontinued Medications Generic Name Dose Route Start Last Admin Trade Name Freq PRN Reason Stop Dose Admin Hydromorphone HCl 1 mg 12/31/17 06:23 12/31/17 06:36 Dilaudid IVPUSH 12/31/17 06:24 1 mg ONETIME ONE Administration Lorazepam 0.5 mg 12/31/17 06:23 12/31/17 06:41 Ativan IVPUSH 12/31/17 06:24 0.5 mg ONETIME ONE Administration - Re-Assessments/Exams Free Text/Narrative Re-Assessment/Exam: 12/31/17 07:[address] Piedra the pediatric social worker oncologist at [facility] regarding the elevated platelet count of 859,000. He says there is nothing to do for right now but she does eventually need to see a pediatric social worker oncologist for workup. 12/31/17 08:25 The patient is doing much better and seems to be much more at ease. I'm going to give her 2 g or Rocephin for her mastoiditis with a white count of 21,000. She is to continue with her antibiotics at home and to follow-up with her family doctor this week for recheck. She understands I will provide something for her pain for her muscle spasms and anxiety but for short term only. Departure - Departure Time of Disposition: 08:26 Disposition: Home, Self-Care 01 Condition: Fair Clinical Impression: Myalgia, Anxiety, Muscle spasm Mastoiditis Qualifiers: Laterality: bilateral Qualified Code(s): H70.93 - Unspecified mastoiditis, bilateral Hypothyroidism Qualifiers: Hypothyroidism type: other Qualified Code(s): E03.8 - Other specified hypothyroidism - Discharge Information Prescriptions: Hydrocodone/Acetaminophen [Hydrocodon-Acetaminophen 5-325] 1 each PO Q6H PRN # 12 tablet PRN Reason: Pain LORazepam [Ativan] 0.5 mg PO Q8H PRN #10 tab PRN Reason: Anxiety Orphenadrine [Norflex] 100 mg PO BID PRN #12 tab.er PRN Reason: Spasms Referrals: Chris Baker MD [Primary Care Provider] - Forms: ED Department Discharge Additional Instructions: Follow-up with her family doctor this week for recheck, have him look at your elevated platelet count, also noticed that sure thyroid needs to be increased, take the medicines for the pain the muscle spasms and anxiety as needed, return to the ER if needed - My Orders Last 24 Hours: My Active Orders 12/31/17 06:30 Sodium Chloride 0.9% [Normal Saline] 1,000 ml IV ASDIRECTED 12/31/17 08:24 cefTRIAXone [Rocephin] 2 gm Sodium Chloride 0.9% [Normal Saline] 100 ml IV ONETIME - Assessment/Plan Last 24 Hours: My Active Orders 12/31/17 06:30 Sodium Chloride 0.9% [Normal Saline] 1,000 ml IV ASDIRECTED 12/31/17 08:24 cefTRIAXone [Rocephin] 2 gm Sodium Chloride 0.9% [Normal Saline] 100 ml IV ONETIME
[2017-12-31] MEDS ORDERED: Sodium Chloride 0.9% 1,000 ML IV SCH (06:30)
[2017-12-31] MEDS ORDERED: cefTRIAXone 2 GM in Sodium Chloride 0.9% 100 ML IV ONE ×2 (08:24→09:15)
[2017-12-31] MEDS ORDERED: cefTRIAXone 2 GM Vial ONE (08:48)
[2017-12-31] MEDS ORDERED: Sodium Chloride 0.9% 100 ML ONE (08:49)
[2017-12-31 09:55] VITALS: BP 105/62
== END 2017-12-31 09:55 | disposition home or self-care (01) ==
LOC: JD.ED 05:17
DX: H70.93 Unspecified mastoiditis, bilateral (principal); F41.9 Anxiety disorder, unspecified; E03.8 Other specified hypothyroidism; M62.838 Other muscle spasm; F17.210 Nicotine dependence, cigarettes, uncomplicated; Z88.0 Allergy status to penicillin; Z91.030 Bee allergy status; Z79.899 Other long term (current) drug therapy
CPT/HCPCS: 36415; 80053; 84443; 85025; 96361; 96365; 96375; 96376; 99284; J0696; J1170; J2060; J7030; J7040

== ENCOUNTER 2018-06-12 10:10 | Emergency (ER) | payer OTHER, SELFPAY ==
[2018-06-12] MEDS ORDERED: Sodium Chloride 0.9% 500 ML IV ONE (10:40)
[2018-06-12] MEDS ORDERED: Sodium Chloride 0.9% 10 ML Syringe FLUSH PRN (10:40)
[2018-06-12] MEDS ORDERED: Ondansetron 4 MG/2 ML SDV IVPUSH ONE (10:40)
[2018-06-12] MEDS ORDERED: Acetaminophen/HYDROcodone 325-5 MG Tab PO ONE (10:48)
--- NOTE | 2018-06-12 11:22 | CT ---
Head CT Technique: Multiple axial sections through the brain were obtained. Intravenous contrast was not utilized. Comparison: Previous MRI brain dated 12/09/1917. Findings: Ventricles along with basal cisterns and sulci over the convexities are within normal limits for the patient's age. No abnormal parenchymal densities are seen. No evidence of intracranial hemorrhage. No midline shift or mass effect is seen. Minimal atherosclerotic calcification is seen within the carotid siphon. Bone window settings were reviewed which shows no acute calvarial abnormality. Mild mucosal thickening is seen within portions of the right mastoid sinus with mastoid findings showing significant improvement from previous MRI. Other paranasal sinuses are clear. Impression: 1. Mild areas of mucosal thickening within right mastoid sinus. When compared to prior MRI, mastoid findings have significantly improved. 2. No acute intracranial abnormality is identified on noncontrast head CT study. Diagnostic code #2
[2018-06-12] MEDS ORDERED: HYDROmorphone 0.5 MG/0.5 ML SYRINGE IVPUSH ONE (12:20)
[2018-06-12] MEDS ORDERED: Gadobenate Dimeglumine 529 MG/ML 20 ML SDV IVPUSH ONE (13:19)
[2018-06-12] MEDS ORDERED: Sodium Chloride 0.9% 10 ML Syringe FLUSH SCH (13:30)
--- NOTE | 2018-06-12 13:49 | EDM.PDOC ---
ED HPI GENERAL MEDICAL PROBLEM - General Chief Complaint: Neurological Problem Stated Complaint: L SIDE NUMBNESS AND WEAKNESS Time Seen by Provider: 06/12/18 10:25 Source of Information: Reports: Patient, RN Notes Reviewed - History of Present Illness INITIAL COMMENTS - FREE TEXT/NARRATIVE: 53-year-old female presents to ED this past morning with multiple symptoms. The initial presenting report was that of numbness and tingling of the left hand and arm, sudden onset while she was sitting in a chair at home about an hour ago. She states her left hand and arm also "felt weak". Now the numbness and tingling is better having lasted about 15-20 minutes more severely and now almost gone. There now is a moderate ache in the hand and arm. She continues to state the hand and arm feels weak but that is not verified on subsequent exam. She also is complaining of right low back pain. That has been present for quite a long time but more severe the past several days. She also does have right upper quadrant tenderness but no pain at rest. There has been occasional nausea but no vomiting or diarrhea. She has been eating and drinking satisfactorily. She is not known to have gallbladder problems. No recent diarrhea. No recent fever. Is not currently have a headache. No chest pain or difficulty breathing. 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 Back Pain Score (Numeric/FACES): 8 - Related Data Allergies Allergy/AdvReac Type Severity Reaction Status Date / Time penicillin Allergy Hives Verified 06/12/18 10:18 bees Allergy Swelling Uncoded 06/12/18 10:18 Home Meds: Home Meds DULoxetine [Cymbalta] 30 mg PO TID 06/26/15 [History] Gabapentin [Neurontin] 900 mg PO TID 06/26/15 [History] Levothyroxine [Synthroid] 88 mcg PO DAILY 06/26/15 [History] Celecoxib [CeleBREX] 200 mg PO DAILY 11/05/17 [History] rOPINIRole [Requip] 0.25 mg PO BEDTIME 11/29/17 [History] LORazepam [Ativan] 0.5 mg PO Q8H PRN #20 tab 12/11/17 [Rx] Doxycycline [Vibramycin] 100 mg PO BID 12/31/17 [History] Hydrocodone/Acetaminophen [Hydrocodon-Acetaminophen 5-325] 1 each PO Q6H PRN # 12 tablet 12/31/17 [Rx] LORazepam [Ativan] 0.5 mg PO Q8H PRN #10 tab 12/31/17 [Rx] Orphenadrine [Norflex] 100 mg PO BID PRN #12 tab.er 12/31/17 [Rx] Acetaminophen/HYDROcodone [Dora 325-5 MG] 1 tab PO Q8HR PRN #6 tablet 06/12/18 [Rx] Past Medical History HEENT History: Reports: Otitis Media Respiratory History: Reports: Other (See Below) Other Respiratory History: "spots on lungs" Needs to have biopsy done. 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 Musculoskeletal History: Reports: Connective Tissue Disease, Fibromyalgia Neurological History: Reports: Other (See Below) Other Neuro History: fibromalgia, Linda's syndrome Psychiatric History: Reports: Depression Endocrine/Metabolic History: Reports: Other (See Below) Other Endocrine/Metabolic History: Hashimotos - Past Surgical History Musculoskeletal Surgical History: Reports: Arthroscopic Knee Social & Family History - Tobacco Use Smoking Status *Q: Current Every Day Smoker Years of Tobacco use: 4 Packs/Tins Daily: 0.5 - Caffeine Use Caffeine Use: Reports: None - Recreational Drug Use Recreational Drug Use: No ED ROS GENERAL - Review of Systems Review Of Systems: See Below Constitutional: Denies: Fever, Chills, Diaphoresis HEENT: Denies: Sinus Problem, Throat Pain, Vertigo, Vision Change Respiratory: Denies: Shortness of Breath, Pleuritic Chest Pain Cardiovascular: Denies: Chest Pain GI/Abdominal: Reports: Abdominal Pain, Nausea (Primarily abdominal tenderness right upper quadrant). Denies: Diarrhea, Vomiting ( occasional, gone) Musculoskeletal: Reports: Arm Pain (Left arm). Denies: Neck Pain, Shoulder Pain Skin: Denies: Rash Neurological: Reports: Numbness (Left hand and arm now almost completely gone) ED EXAM, NEURO - Physical Exam Exam: See Below General Appearance: Alert, Anxious, Moderate Distress Eye Exam: Bilateral Eye: PERRL Throat/Mouth: Normal Inspection, Normal Oropharynx Head Exam: Atraumatic. No: Facial Swelling Neck: Supple, Full Range of Motion. No: Lymphadenopathy (L), Lymphadenopathy (R ) Respiratory/Chest: No Respiratory Distress, Lungs Clear, Normal Breath Sounds Cardiovascular: Regular Rate, Rhythm GI/Abdominal: Soft, No Mass, Tender (Mild to moderate tenderness right upper quadrant, abdomen otherwise soft and nontender). No: Guarding, Rebound Neurological: Alert, No Motor/Sensory Deficits, Oriented x 3, Other (Finger to nose testing normal bilateral) Back Exam: Paraspinal Tenderness (Right low back) Extremities: Normal Inspection, Normal Range of Motion. No: Leg Pain Skin Exam: Warm, Dry, Normal Color, No Rash Course - Vital Signs Last Recorded V/S: Last Vital Signs Temp 98.0 F 06/12/18 15:45 Pulse 68 06/12/18 15:45 Resp 16 06/12/18 15:45 BP 107/67 06/12/18 15:45 Pulse Ox 94 L 06/12/18 15:45 - Orders/Labs/Meds Orders: Active Orders 24 hr Category Date Time Status EKG 12 Lead [EKG Documentation Completion] [RC] STAT Care 06/12/18 12:13 Active Peripheral IV Care [RC] . DIRECTED Care 06/12/18 10:41 Active UA W/MICROSCOPIC [URIN] Stat Lab 06/12/18 12:21 Ordered Sodium Chloride 0.9% [Saline Flush] Med 06/12/18 10:40 Active 10 ml FLUSH ASDIRECTED PRN Sodium Chloride 0.9% [Saline Flush] Med 06/12/18 13:30 Active 30 ml FLUSH ASDIRECTED Peripheral IV Insertion Adult [OM.PC] Stat Oth 06/12/18 10:40 Ordered Medication Orders Sodium Chloride (Saline Flush) 10 ml FLUSH ASDIRECTED PRN PRN Reason: Keep Vein Open Last Admin: 06/12/18 10:53 Dose: 10 ml Sodium Chloride (Saline Flush) 30 ml FLUSH ASDIRECTED LINDA Last Admin: 06/12/18 13:48 Dose: 30 ml Labs: Laboratory Tests 06/12/18 06/12/18 06/12/18 Range/Units 10:52 10:52 10:52 WBC 15.11 H (3.98-10.04) K/mm3 RBC 4.84 (3.98-5.22) M/mm3 Hgb 13.6 (11.2-15.7) gm/L Hct 41.3 (34.1-44.9) % MCV 85.3 (79.4-94.8) fl MCH 28.1 (25.6-32.2) pg MCHC 32.9 (32.2-35.5) g/dl RDW Std Deviation 49.2 H (36.4-46.3) fL Plt Count 585 H (182-369) K/mm3 MPV 9.7 (9.4-12.3) fl Neut % (Auto) 85.3 H (34.0-71.1) % Lymph % (Auto) 8.1 L (19.3-51.7) % Baxter % (Auto) 5.0 (4.7-12.5) % Eos % (Auto) 0.6 L (0.7-5.8) Baso % (Auto) 0.3 (0.1-1.2) % Neut # (Auto) 12.89 H (1.56-6.13) K/mm3 Lymph # (Auto) 1.23 (1.18-3.74) K/mm3 Baxter # (Auto) 0.76 H (0.24-0.36) K/mm3 Eos # (Auto) 0.09 (0.04-0.36) K/mm3 Baso # (Auto) 0.04 (0.01-0.08) K/mm3 Manual Slide Review Abnormal smear ESR (0-20) mm/hr Sodium 139 (136-145) mEq/L Potassium 3.8 (3.5-5.1) mEq/L Chloride 103 (98-107) mEq/L Carbon Dioxide 26 (21-32) mEq/L Anion Gap 13.8 (5-15) BUN 10 (7-18) mg/dL Creatinine 0.9 (0.55-1.02) mg/dL Est Cr Clr Drug Dosing 57.17 mL/min Estimated GFR (MDRD) > 60 (>60) mL/min BUN/Creatinine Ratio 11.1 L (14-18) Glucose 104 (74-106) mg/dL Calcium 8.7 (8.5-10.1) mg/dL Total Bilirubin 0.4 (0.2-1.0) mg/dL AST 21 (15-37) U/L ALT 23 (14-59) U/L Alkaline Phosphatase 52 (46-116) U/L C-Reactive Protein 0.5 (<1.0) mg/dL Total Protein 7.4 (6.4-8.2) g/dl Albumin 3.9 (3.4-5.0) g/dl Globulin 3.5 gm/dL Albumin/Globulin Ratio 1.1 (1-2) Lipase 146 (73-393) U/L Urine Color (Yellow) Urine Appearance (Clear) Urine pH (5.0-8.0) Ur Specific [place] (1.005-1.030) Urine Protein (Negative) Urine Glucose (UA) (Negative) Urine Ketones (Negative) Urine Occult Blood (Negative) Urine Nitrite (Negative) Urine Bilirubin (Negative) Urine Urobilinogen (0.2-1.0) Ur Leukocyte Esterase (Negative) Urine RBC (0-5) /hpf Urine WBC (0-5) /hpf Ur Epithelial Cells (0-5) /hpf Urine Bacteria (FEW) /hpf Urine Mucus (FEW) /hpf 06/12/18 06/12/18 Range/Units 10:52 12:21 WBC (3.98-10.04) K/mm3 RBC (3.98-5.22) M/mm3 Hgb (11.2-15.7) gm/L Hct (34.1-44.9) % MCV (79.4-94.8) fl MCH (25.6-32.2) pg MCHC (32.2-35.5) g/dl RDW Std Deviation (36.4-46.3) fL Plt Count (182-369) K/mm3 MPV (9.4-12.3) fl Neut % (Auto) (34.0-71.1) % Lymph % (Auto) (19.3-51.7) % Baxter % (Auto) (4.7-12.5) % Eos % (Auto) (0.7-5.8) Baso % (Auto) (0.1-1.2) % Neut # (Auto) (1.56-6.13) K/mm3 Lymph # (Auto) (1.18-3.74) K/mm3 Baxter # (Auto) (0.24-0.36) K/mm3 Eos # (Auto) (0.04-0.36) K/mm3 Baso # (Auto) (0.01-0.08) K/mm3 Manual Slide Review ESR 22 H (0-20) mm/hr Sodium (136-145) mEq/L Potassium (3.5-5.1) mEq/L Chloride (98-107) mEq/L Carbon Dioxide (21-32) mEq/L Anion Gap (5-15) BUN (7-18) mg/dL Creatinine (0.55-1.02) mg/dL Est Cr Clr Drug Dosing mL/min Estimated GFR (MDRD) (>60) mL/min BUN/Creatinine Ratio (14-18) Glucose (74-106) mg/dL Calcium (8.5-10.1) mg/dL Total Bilirubin (0.2-1.0) mg/dL AST (15-37) U/L ALT (14-59) U/L Alkaline Phosphatase (46-116) U/L C-Reactive Protein (<1.0) mg/dL Total Protein (6.4-8.2) g/dl Albumin (3.4-5.0) g/dl Globulin gm/dL Albumin/Globulin Ratio (1-2) Lipase (73-393) U/L Urine Color Light yellow (Yellow) Urine Appearance Clear (Clear) Urine pH 7.0 (5.0-8.0) Ur Specific [place] 1.015 (1.005-1.030) Urine Protein Negative (Negative) Urine Glucose (UA) Negative (Negative) Urine Ketones Negative (Negative) Urine Occult Blood Negative (Negative) Urine Nitrite Negative (Negative) Urine Bilirubin Negative (Negative) Urine Urobilinogen 0.2 (0.2-1.0) Ur Leukocyte Esterase Negative (Negative) Urine RBC Not seen (0-5) /hpf Urine WBC Not seen (0-5) /hpf Ur Epithelial Cells 0-5 (0-5) /hpf Urine Bacteria Rare (FEW) /hpf Urine Mucus Not seen (FEW) /hpf Meds: Medications Generic Name Dose Route Start Last Admin Trade Name Freq PRN Reason Stop Dose Admin Sodium Chloride 10 ml 06/12/18 10:40 06/12/18 10:53 Saline Flush FLUSH 10 ml ASDIRECTED PRN Administration Keep Vein Open Sodium Chloride 30 ml 06/12/18 13:30 06/12/18 13:48 Saline Flush FLUSH 30 ml ASDIRECTED LINDA Administration Discontinued Medications Generic Name Dose Route Start Last Admin Trade Name Satya PRN Reason Stop Dose Admin Hydrocodone Bitart/Acetaminophen 1 tab 06/12/18 10:48 06/12/18 10:58 Dora 325-5 Mg PO 06/12/18 10:49 1 tab ONETIME ONE Administration Gadobenate Dimeglumine 20 ml 06/12/18 13:19 06/12/18 13:47 Multihance IVPUSH 06/12/18 13:20 20 ml ONETIME ONE Administration Hydromorphone HCl 1 mg 06/12/18 12:20 06/12/18 12:30 Dilaudid IVPUSH 06/12/18 12:21 1 mg ONETIME ONE Administration Sodium Chloride 500 mls @ 999 mls/hr 06/12/18 10:40 06/12/18 10:52 Normal Saline IV 06/12/18 11:10 999 mls/hr .BOLUS ONE Administration Ondansetron HCl 4 mg 06/12/18 10:40 06/12/18 10:53 Zofran IVPUSH 06/12/18 10:41 4 mg ONETIME ONE Administration - Re-Assessments/Exams Free Text/Narrative Re-Assessment/Exam: 06/12/18 13:50 Although patient presented with the symptoms of tingling and weakness left arm she demonstrated concern for right low back pain and right abdominal pain during the course of history and exam. She also did relate that she ran out of her hydrocodone yesterday with her last dose last evening. She states that she does take that on a regular basis normally about 3 per day. We did go ahead and give her 1 dose of hydrocodone 03/22/25. After. After a short time she is telling nurses that "it is not working, she is having severe pain right low back needs something more powerful for pain. At the time that I did get in to see her she is quite upset that we had not responded to her request any more timely fashion. I have explained we are extremely busy and was busy with other patients and did get back to her as soon as I could. She is tearful stating she is having severe pain right low back, the hydrocodone "did not work". On repeat neuro exam she continues to have no neuro deficit. I have ordered Dilaudid 1 mg IV for the low back discomfort. Labs are Overall relatively normal although white blood count is elevated 15,000. C reactive protein is only 0.6. Ordered UA to rule out a kidney your kidney stone type problem. 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 06/12/18 17:00. MRI of head nl, carotid study, no blockage. Resting more comfortably at time of discharge. Discharge instr. as documented. Free Text/Narrative Re-Assessment/Exam: 06/12/18 17:30 At time of discharge she states her big worry is getting her hydrocodone refilled. She ran out yesterday, takes that for chronic "low back pain" She is waiting "for a refill to get called in" She denies being under any type of pain contract. Have prescribed 6 tablets hydrocodone 5/325 to carry her for a day or 2 if needed. Departure - Departure Time of Disposition: 15:27 Disposition: Home, Self-Care 01 Condition: Fair Clinical Impression: Paresthesias Back pain Qualifiers: Back pain location: low back pain Chronicity: chronic Back pain laterality: right Sciatica presence: without sciatica Qualified Code(s): M54.5 - Low back pain Abdominal pain Qualifiers: Abdominal location: right upper quadrant Qualified Code(s): R10.11 - Right upper quadrant pain - Discharge Information Prescriptions: Acetaminophen/HYDROcodone [Dora 325-5 MG] 1 tab PO Q8HR PRN #6 tablet PRN Reason: Pain Referrals: Chris Baker MD [Primary Care Provider] - Forms: ED Department Discharge Additional Instructions: Rest, drink plenty of fluids to maintain hydration, continue current medications as prescribed, alternate ice and heat to right low back as needed for symptomatic relief, follow-up with Dr. Amanda as needed if symptoms not resolving as expected, follow-up with your Welfare Eligibility Interviewer as planned, return to ED as needed if symptoms worsening in any way. - My Orders Last 24 Hours: My Active Orders 06/12/18 10:40 Sodium Chloride 0.9% [Saline Flush] 10 ml FLUSH ASDIRECTED PRN Peripheral IV Insertion Adult [OM.PC] Stat 06/12/18 10:41 Peripheral IV Care [RC] . DIRECTED 06/12/18 12:13 EKG 12 Lead [EKG Documentation Completion] [RC] STAT 06/12/18 12:21 UA W/MICROSCOPIC [URIN] Stat 06/12/18 13:30 Sodium Chloride 0.9% [Saline Flush] 30 ml FLUSH ASDIRECTED - Assessment/Plan Last 24 Hours: My Active Orders 06/12/18 10:40 Sodium Chloride 0.9% [Saline Flush] 10 ml FLUSH ASDIRECTED PRN Peripheral IV Insertion Adult [OM.PC] Stat 06/12/18 10:41 Peripheral IV Care [RC] . DIRECTED 06/12/18 12:13 EKG 12 Lead [EKG Documentation Completion] [RC] STAT 06/12/18 12:21 UA W/MICROSCOPIC [URIN] Stat 06/12/18 13:30 Sodium Chloride 0.9% [Saline Flush] 30 ml FLUSH ASDIRECTED
--- NOTE | 2018-06-12 14:31 | MR ---
MR angiogram of brain Technique: Post-gadolinium MR angiogram study was obtained centered through the neck. Multiple MIP images were obtained. Comparison: No prior vascular imaging of the neck. Findings: Both common carotid arteries are patent. Both vertebral arteries are patent. Basilar artery is patent. Carotid bifurcations appear within normal limits. Visualized portion of the external carotid arteries are within normal limits. No focal narrowing or occlusion is seen. Impression: 1. No abnormality is seen on MR angiogram study of the neck. Diagnostic code #1
--- NOTE | 2018-06-12 14:36 | MR ---
MRI brain (without and with intravenous contrast) Technique: T1 sagittal; T2, T2 FLAIR, T1 and diffusion axial; T1 coronal; post-gadolinium T1 axial and post-gadolinium T1 FLAIR coronal images were obtained through the brain. Comparison: Recent head CT study performed earlier on the same day (10:42 AM) and previous MRI brain of 12/18/17. Findings: Ventricles along with basal cisterns and sulci over the convexities appear within normal limits for the patient's age. Normal signal void is seen within the major cerebral arteries within the skull base. Mild areas of mucosal thickening are seen within both mastoid sinuses which is not as prominent as on prior MRI. No abnormal signal is seen within the brain parenchyma. No midline shift or mass effect is seen. No acute diffusion abnormalities are seen. No abnormal enhancement is seen. Impression: 1. Mucosal thickening within the mastoid sinuses which is not as prominent as on previous MRI. 2. Other portions of the MRI study of the brain are within normal limits. Diagnostic code #2
[2018-06-12 16:04] VITALS: BP 107/67
== END 2018-06-12 15:45 | disposition home or self-care (01) ==
LOC: JD.ED 10:10
DX: M54.5 Low back pain (principal); R10.11 Right upper quadrant pain; R20.2 Paresthesia of skin; F17.210 Nicotine dependence, cigarettes, uncomplicated; Z91.030 Bee allergy status; Z88.0 Allergy status to penicillin; Z79.899 Other long term (current) drug therapy
CPT/HCPCS: 36415; 70450; 70548; 70553; 80053; 81001; 83690; 85025; 85652; 86140; 93005; 96361; 96374; 96375; 99285; A9270; A9577; J1170; J2405; J7040; J7050

== ENCOUNTER 2018-07-20 11:18 | Emergency (ER) | payer OTHER ==
[2018-07-20 11:35] VITALS: BP 116/88
[2018-07-20] MEDS ORDERED: Sodium Chloride 0.9% 10 ML Syringe FLUSH PRN ×2 (11:48→12:55)
[2018-07-20] MEDS ORDERED: HYDROmorphone 0.5 MG/0.5 ML SYRINGE IVPUSH ONE (11:48)
[2018-07-20] MEDS ORDERED: Sodium Chloride 0.9% 1,000 ML IV SCH (12:30)
[2018-07-20] MEDS ORDERED: Alum Hydrox/Mag Hydrox/Simeth 30 ML, Lidocaine 2% 15 ML PO ONE ×2 (12:39)
[2018-07-20] MEDS ORDERED: Iopamidol 755 Mg/ML 100 ML Bottle IVPUSH ONE (12:55)
--- NOTE | 2018-07-20 12:57 | EDM.PDOC ---
ED HPI GENERAL MEDICAL PROBLEM - General Chief Complaint: Respiratory Problem Stated Complaint: SOB Time Seen by Provider: 07/20/18 11:36 Source of Information: Reports: Patient History Limitations: Reports: No Limitations - History of Present Illness INITIAL COMMENTS - FREE TEXT/NARRATIVE: Patient is a 53-year-old female presents ED complaining of anterior neck/trachea /superior anterior chest discomfort with shortness of breath, hoarse voice, and difficulty moving air. Patient has a history of Venecia's granulomatosis and states for the past month she's been complaining of the above symptoms. Symptoms have progressively getting worse. Pain to the neck, trachea, chest is reproducible with palpation and taking a deep breath. At times she has some difficulty with swallowing but notes she is able to control her oral secretions with no issues. States she noticed a significant change after decreasing her daily steroids from 10 mg to 5 mg. She's been on 5 mg daily ever since. Patient receives rituxan infusions every 6 months and is due for one in one month. She sees Dr. Guaman [facility]. 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 There's been no documented fever. Cough is chronic with no new changes. She has not been coughing up any blood. No swelling or tenderness to the lower extremities. No history of blood clots to her lungs or legs. She continues to take all her home medications as listed. Chest Pain Score (Numeric/FACES): 8 - Related Data Allergies Allergy/AdvReac Type Severity Reaction Status Date / Time penicillin Allergy Hives Verified 06/12/18 10:18 bees Allergy Swelling Uncoded 06/12/18 10:18 Home Meds: Home Meds DULoxetine [Cymbalta] 30 mg PO TID 06/26/15 [History] Gabapentin [Neurontin] 900 mg PO TID 06/26/15 [History] Levothyroxine [Synthroid] 88 mcg PO DAILY 06/26/15 [History] Celecoxib [CeleBREX] 200 mg PO DAILY 11/05/17 [History] rOPINIRole [Requip] 0.25 mg PO BEDTIME 11/29/17 [History] LORazepam [Ativan] 0.5 mg PO Q8H PRN #20 tab 12/11/17 [Rx] Doxycycline [Vibramycin] 100 mg PO BID 12/31/17 [History] Hydrocodone/Acetaminophen [Hydrocodon-Acetaminophen 5-325] 1 each PO Q6H PRN # 12 tablet 12/31/17 [Rx] LORazepam [Ativan] 0.5 mg PO Q8H PRN #10 tab 12/31/17 [Rx] Orphenadrine [Norflex] 100 mg PO BID PRN #12 tab.er 12/31/17 [Rx] Acetaminophen/HYDROcodone [[place] 325-5 MG] 1 tab PO Q8HR PRN #6 tablet 06/12/18 [Rx] predniSONE [Prednisone] 5 mg PO DAILY 07/20/18 [History] Past Medical History HEENT History: Reports: Otitis Media Respiratory History: Reports: Other (See Below) Other Respiratory History: "spots on lungs" Needs to have biopsy done. 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 Musculoskeletal History: Reports: Connective Tissue Disease, Fibromyalgia Neurological History: Reports: Other (See Below) Other Neuro History: fibromalgia, Linda's syndrome Psychiatric History: Reports: Depression Endocrine/Metabolic History: Reports: Other (See Below) Other Endocrine/Metabolic History: Hashimotos, Venecia's - Infectious Disease History Infectious Disease History: Reports: Chicken Pox - Past Surgical History Musculoskeletal Surgical History: Reports: Arthroscopic Knee Social & Family History - Family History Family Medical History: Noncontributory - Tobacco Use Smoking Status *Q: Current Every Day Smoker Years of Tobacco use: 4 Packs/Tins Daily: 0.2 - Caffeine Use Caffeine Use: Reports: Coffee - Recreational Drug Use Recreational Drug Use: No ED ROS GENERAL - Review of Systems Review Of Systems: See Below Constitutional: Reports: No Symptoms HEENT: Reports: No Symptoms Respiratory: Reports: Shortness of Breath, Pleuritic Chest Pain. Denies: Wheezing, Cough, Sputum, Hemoptysis Cardiovascular: Reports: Dyspnea on Exertion. Denies: Lightheadedness, Palpitations, Syncope GI/Abdominal: Reports: No Symptoms Musculoskeletal: Reports: Neck Pain (Pain to the anterior aspect of her neck along the trachea.) Skin: Reports: No Symptoms Neurological: Reports: No Symptoms ED EXAM, GENERAL - Physical Exam Exam: See Below Exam Limited By: No Limitations General Appearance: Alert, WD/WN, No Apparent Distress Eye Exam: Bilateral Eye: Normal Inspection Ears: Hearing Grossly Normal Nose: Normal Inspection Throat/Mouth: Normal Inspection, Normal Oropharynx, No Airway Compromise, Other (No findings concerning for thrush. Uvula midline. No peritonsillar abscess noted. No swelling noted to the posterior pharynx.). No: Normal Voice (Patient is a worse voice with no stridor present. She is moving good air. SPO2 92% on room air. No drooling noted.) Neck: Normal Inspection, Supple, Full Range of Motion, Other (Tenderness noted along the trachea with palpation. No deviation noted.). No: Lymphadenopathy (L) , Lymphadenopathy (R) Respiratory/Chest: No Respiratory Distress, Lungs Clear, Normal Breath Sounds, No Accessory Muscle Use, Other (Along the superior aspect of the anterior chest along the sternal worse with palpation.) Cardiovascular: Normal Peripheral Pulses, Regular Rate, Rhythm, No Murmur Peripheral Pulses: 2+: Radial (L), Radial (R) GI/Abdominal: Normal Bowel Sounds, Soft, Non-Tender, No Organomegaly, No Distention Back Exam: Normal Inspection Extremities: Normal Inspection, Non-Tender, No Pedal Edema Neurological: Alert, Oriented, CN II-XII Intact, Normal Cognition, No Motor/ Sensory Deficits Psychiatric: Normal Affect, Normal Mood Skin Exam: Warm, Dry, Intact, Normal Color Course - Vital Signs Last Recorded V/S: Last Vital Signs Temp 97.7 F 07/20/18 11:29 Pulse 104 H 07/20/18 11:29 Resp 20 07/20/18 11:29 BP 116/88 07/20/18 11:29 Pulse Ox 97 07/20/18 11:29 - Orders/Labs/Meds Orders: Active Orders 24 hr Category Date Time Status EKG Documentation Completion [RC] ASDIRECTED Care 07/20/18 12:33 Active Peripheral IV Care [RC] . DIRECTED Care 07/20/18 11:48 Active Peripheral IV Insertion Adult [OM.PC] Routine Oth 07/20/18 11:48 Ordered EKG 12 Lead [EK] Stat Ther 07/20/18 12:31 Ordered Labs: Laboratory Tests 07/20/18 Range/Units 11:30 Sodium 141 (136-145) mEq/L Potassium 3.9 (3.5-5.1) mEq/L Chloride 102 (98-107) mEq/L Carbon Dioxide 27 (21-32) mEq/L Anion Gap 15.9 H (5-15) BUN 15 (7-18) mg/dL Creatinine 0.8 (0.55-1.02) mg/dL Est Cr Clr Drug Dosing 67.27 mL/min Estimated GFR (MDRD) > 60 (>60) mL/min BUN/Creatinine Ratio 18.8 H (14-18) Glucose 104 (74-106) mg/dL Calcium 9.8 (8.5-10.1) mg/dL Total Bilirubin 0.2 (0.2-1.0) mg/dL AST 18 (15-37) U/L ALT 21 (14-59) U/L Alkaline Phosphatase 61 (46-116) U/L Troponin I < 0.017 (0.00-0.056) ng/mL Total Protein 7.7 (6.4-8.2) g/dl Albumin 4.0 (3.4-5.0) g/dl Globulin 3.7 gm/dL Albumin/Globulin Ratio 1.1 (1-2) Meds: Medications Discontinued Medications Generic Name Dose Route Start Last Admin Trade Name Freq PRN Reason Stop Dose Admin Al Hydroxide/Mg Hydroxide 30 0 ml 07/20/18 12:39 07/20/18 12:44 ml/ Lidocaine HCl 15 ml PO 07/20/18 12:40 45 ml ONETIME ONE Administration Hydromorphone HCl 0.5 mg 07/20/18 11:48 07/20/18 12:06 Dilaudid IVPUSH 07/20/18 11:49 0.5 mg ONETIME ONE Administration Sodium Chloride 1,000 mls @ 250 mls/hr 07/20/18 12:30 07/20/18 12:28 Normal Saline IV 250 mls/hr ASDIRECTED LINDA Administration Sodium Chloride 100 mls @ 75 mls/hr 07/20/18 13:00 07/20/18 13:27 Normal Saline IV 75 mls/hr ASDIRECTED LINDA Administration Iopamidol 100 ml 07/20/18 12:55 07/20/18 13:27 Isovue-370 (76%) IVPUSH 07/20/18 12:56 100 ml ONETIME ONE Administration Prednisone 40 mg 07/20/18 14:36 07/20/18 14:45 Prednisone PO 07/20/18 14:37 40 mg ONETIME ONE Administration Sodium Chloride 10 ml 07/20/18 11:48 07/20/18 12:06 Saline Flush FLUSH 10 ml ASDIRECTED PRN Administration Keep Vein Open Sodium Chloride 10 ml 07/20/18 12:55 07/20/18 13:27 Saline Flush FLUSH 10 ml ONETIME PRN Administration IV FLUSH - Re-Assessments/Exams Free Text/Narrative Re-Assessment/Exam: Patient had lab work and a chest x-ray obtained at [facility] yesterday. I will call have those results faxed to us. Labs obtained at [facility]: CRP 14.2, ESR 12, white blood cell count 11.6, hemoglobin 13.9, platelet count 534, no neutrophilia. Chest x-ray impression: Heart size and vasculature are normal. Cardiac fat pads. Platelike atelectasis right lung base. No acute infiltrates or evidence of pleural.. Chest otherwise appears negative. 1208 I did speak with Dr. [facility] at [facility]. He is quite familiar with this patient. States she's had this discomfort as listed in the history of present illness for quite some time. She was referred to ENT with no significant findings. She does have an appointment with ENT as scheduled for this next week. Patient is a very anxious person. He has no concerns at this point with the history that I'm providing. He suggested obtaining a CT of the chest since she is due for for another routine evaluation. He agrees CT of the neck to be obtained as well. Suggested increasing the daily dose of and his own to 10 mg every day. They will attempt to decrease the daily prednisone with next infusion. EKG sinus rhythm at a rate [address] changes noted. I've ordered prednisone 40 mg po x1. Patient will get up and ambulate with pulse ox to ensure she is not desating. If stable she will be discharged home. 07/20/18 14:37 Patient ambulated with SPO2 with Sats 88 to 89%. Patient was only mildly sob. I did speak with Dr. Vizcarra and agrees with plan to discharge home with outpatient echocardiogram. States would not be to concerned with SPO2 with her dx. Patient is ready be discharged home. Outpatient echocardiogram will be obtained. The patient remained hemodynamically stable while under my care in the E.D. I discussed the concerning symptoms for which to returnto the E.D. with the patient/family. The patient/family verbalized understanding. All questions were answered. Departure - Departure Time of Disposition: 14:38 Disposition: Home, Self-Care 01 Condition: Good Clinical Impression: Venecia's disease, pulmonary, Chest wall pain, Hoarseness of voice, Anterior neck pain, SOB (shortness of breath) on exertion - Discharge Information Instructions: Shortness of Breath, Adult, [id number], Granulomatosis With Polyangiitis, Chest Wall Pain Referrals: Chris Baker MD [Primary Care Provider] - Forms: ED Department Discharge Additional Instructions: As discussed CT of the neck and lungs did not reveal any acute findings. CT of the chest did show some mild enlargement to your heart. Thus with her history of shortness of breath with exertion Will go ahead and obtain a echocardiogram. Please keep appointment with ENT specialist as scheduled for next week. Call and make an appointment to see her primary care provider this coming week for reevaluation and results of the echocardiogram. Take 10 mg of prednisone daily until evaluated by electrophysiology technologist this coming month. Please return back to the ED if you develop any new or worsening symptoms as discussed. Continue taking all your home medications as prescribed. No driving today since receiving a sedative medication. Of note with ambulation your SPO2 dropped to 88-89%. Typically we like to keep this above 92%. At rest her O2 sats were 95%. See her PCP this coming week with repeat pulse oximetry with ambulation to see if there is any improvements with taking the prednisone. - My Orders Last 24 Hours: My Active Orders 07/20/18 11:48 Peripheral IV Care [RC] . DIRECTED Peripheral IV Insertion Adult [OM.PC] Routine 07/20/18 12:31 EKG 12 Lead [EK] Stat 07/20/18 12:33 EKG Documentation Completion [RC] ASDIRECTED - Assessment/Plan Last 24 Hours: My Active Orders 07/20/18 11:48 Peripheral IV Care [RC] . DIRECTED Peripheral IV Insertion Adult [OM.PC] Routine 07/20/18 12:31 EKG 12 Lead [EK] Stat 07/20/18 12:33 EKG Documentation Completion [RC] ASDIRECTED
[2018-07-20] MEDS ORDERED: Sodium Chloride 0.9% 100 ML IV SCH (13:00)
--- NOTE | 2018-07-20 14:07 | CT ---
CT neck Technique: Multiple axial sections were obtained from above the external auditory canals inferiorly to the lung apices. Intravenous contrast was utilized. Reconstructed coronal and sagittal images were reviewed. Findings: Parotid salivary glands appear within normal limits. Submandibular salivary glands are within normal limits. Thyroid gland appears within normal limits in size. No adenopathy is seen within the neck. Parapharyngeal soft tissues are symmetric. Visualized trachea appears within normal limits without intraluminal abnormality. Prevertebral soft tissues are normal. Epiglottis appears normal. Bone window settings were reviewed which shows minimal degenerative change within the spine. Impression: 1. Incidental findings. Nothing acute is appreciated on CT study of the neck. Diagnostic code #2
--- NOTE | 2018-07-20 14:07 | CT ---
CT chest Technique: Multiple axial sections through the chest were obtained. Intravenous contrast was utilized. Study has been performed as a pulmonary angiogram protocol. Comparison: Prior CT study of 12/11/17. Findings: Pulmonary arteries are well-opacified. No filling defects are seen to indicate pulmonary embolism. Mediastinum and hilar regions show no adenopathy or mass. Slight pericardial thickening is seen. Hounsfield units are not of simple fluid and findings most likely due to slight pericardial fibrosis. Less likely etiology is small amount of complicated fluid. Heart is slightly enlarged. Small portion the visualized upper abdominal structures are within normal limits. Slight scarring is felt to be present within both upper lungs. Small air-filled cyst is seen within the left upper chest. No acute parenchymal densities are seen. No pleural effusions or pneumothorax is seen. Mediastinum and hilar regions show no adenopathy or mass. Thoracic aorta shows no dissection or aneurysm. Impression: 1. Slightly prominent pericardium as noted above. This finding is an interval change from previous exam. Heart is slightly enlarged which is more prominent than on previous exam. 2. No findings of pulmonary embolism. 3. Other findings which are felt to be incidental. Diagnostic code #3
[2018-07-20] MEDS ORDERED: predniSONE 20 MG Tab PO ONE (14:36)
== END 2018-07-20 14:55 | disposition home or self-care (01) ==
LOC: JD.ED 11:18
DX: A50.02 Early congenital syphilitic osteochondropathy (principal); M54.2 Cervicalgia; R49.0 Dysphonia; R07.89 Other chest pain; F17.210 Nicotine dependence, cigarettes, uncomplicated; Z88.0 Allergy status to penicillin; Z91.030 Bee allergy status
CPT/HCPCS: 36415; 70491; 71275; 80053; 84484; 93005; 96361; 96374; 99285; A9270; J1170; J7030; J7040; J7050; Q9967

== ENCOUNTER 2021-05-08 15:46 | Emergency (ER) | payer BC, MEDICARE ==
[2021-05-08 15:57] VITALS: BP 92/70; PULSE 74
[2021-05-08] MEDS ORDERED: Lidocaine/EPINEPHrine/Tetracaine Soln 1 ML TOP ONE (16:02)
--- NOTE | 2021-05-08 16:17 | EDM.PDOC ---
ED HPI GENERAL MEDICAL PROBLEM - General Chief Complaint: Upper Extremity Injury/Pain Stated Complaint: R HAND MIDDLE FINGER INFECTION Time Seen by Provider: 05/08/21 15:55 Source of Information: Reports: Patient, RN Notes Reviewed History Limitations: Reports: No Limitations - History of Present Illness INITIAL COMMENTS - FREE TEXT/NARRATIVE: Patient is a 56-year-old female who presents to the ER for a right middle finger infection. Patient was seen by the clinic, earlier this week and put on cephalexin twice daily. Patient initially injured her finger when she reached i nto a delmy dominguez, and caused a puncture wound to the lateral side of her right finger near the nail bed. Patient states that the cephalexin does not seem to be covering what is happening, and the area has gotten more red, swollen, and there does appear to be purulent material visualized. She has not been using heat packs or ice packs to the area. She was using oxycodone/acetaminophen 5/325 tablets that her primary care provider gave to her for pain management but notes that she has been on [place] for many years, so she is not opioid parag. She has not been using any sort of Tylenol ibuprofen for supplemental management. Patient denies any other sick-like symptoms, fever/chills, cough/shortness of breath, nausea/vomiting/diarrhea. Does carry a history of Venecia's disease, so she states she is immune compromised. Right Middle Finger-Middle Pain Score (Numeric/FACES): 5 - Related Data Allergies Allergy/AdvReac Type Severity Reaction Status Date / Time penicillin Allergy Hives Verified 05/08/21 15:57 bees Allergy Swelling Uncoded 06/12/18 10:18 Home Meds: Home Meds DULoxetine [Cymbalta] 30 mg PO TID 06/26/15 [History] Gabapentin [Neurontin] 900 mg PO TID 06/26/15 [History] Levothyroxine [Synthroid] 88 mcg PO DAILY 06/26/15 [History] Celecoxib [CeleBREX] 200 mg PO DAILY 11/05/17 [History] rOPINIRole [Requip] 0.25 mg PO BEDTIME 11/29/17 [History] LORazepam [Ativan] 0.5 mg PO Q8H PRN #10 tab 12/31/17 [Rx] Acetaminophen/HYDROcodone [[place] 325-5 MG] 1 tab PO Q8HR PRN #6 tablet 06/12/18 [Rx] Doxycycline [Vibramycin] 100 mg PO BID 7 Days #14 tab 05/08/21 [Rx] cephALEXin [Cephalexin] 500 mg PO BID 05/08/21 [History] oxyCODONE HCl/Acetaminophen [Percocet 10-325 mg Tablet] 1 tab PO Q6H PRN #20 tablet 05/08/21 [Rx] Past Medical History HEENT History: Reports: Otitis Media Respiratory History: Reports: Other (See Below) Other Respiratory History: "spots on lungs" Needs to have biopsy done. 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 Musculoskeletal History: Reports: Connective Tissue Disease, Fibromyalgia Neurological History: Reports: Other (See Below) Other Neuro History: fibromalgia, Linda's syndrome Psychiatric History: Reports: Depression Endocrine/Metabolic History: Reports: Other (See Below) Other Endocrine/Metabolic History: Hashimotos, Venecia's - Infectious Disease History Infectious Disease History: Reports: Chicken Pox - Past Surgical History Musculoskeletal Surgical History: Reports: Arthroscopic Knee Social & Family History - Family History Family Medical History: No Pertinent Family History - Tobacco Use Tobacco Use Status *Q: Current Every Day Tobacco User Years of Tobacco use: 7 Packs/Tins Daily: 0.2 - Caffeine Use Caffeine Use: Reports: Coffee, Soda - Recreational Drug Use Recreational Drug Use: No Review of Systems - Review of Systems Review Of Systems: Comprehensive ROS is negative, except as noted in HPI. ED EXAM, GENERAL - Physical Exam Exam: See Below Exam Limited By: No Limitations General Appearance: Alert, WD/WN, No Apparent Distress Respiratory/Chest: No Respiratory Distress, Lungs Clear, Normal Breath Sounds, No Accessory Muscle Use, Chest Non-Tender Cardiovascular: Normal Peripheral Pulses, Regular Rate, Rhythm, No Edema Peripheral Pulses: 2+: Radial (L), Radial (R) Extremities: Normal Range of Motion, Normal Capillary Refill Neurological: Alert, Oriented, Normal Cognition, No Motor/Sensory Deficits Psychiatric: Normal Affect, Normal Mood Skin Exam: Warm, Dry, Intact, No Rash, Erythema (to the right lateral posterior finger near the lateral nail bed.) ED TRAUMA EXTREMITY PROCEDURES - I&D Site: R posterior middl efinger Skin Prep: Chlorhexidine (Hibiciens) Local Anesthesia: Lidocaine: Other (LET applied topically) Area Incised With: 11 Blade Drainage: Purulent, Small Amount Probed to Break Up Loculations: No Sterile Dressing: Adhesive Dressing Complications: No Course - Vital Signs Last Recorded V/S: Last Vital Signs Temp 97.0 F 05/08/21 15:56 Pulse 74 05/08/21 15:56 Resp 20 05/08/21 15:56 BP 92/70 05/08/21 15:56 Pulse Ox 97 05/08/21 15:56 - Orders/Labs/Meds Meds: Medications Discontinued Medications Generic Name Dose Route Start Last Admin Trade Name Freq PRN Reason Stop Dose Admin Lidocaine/Tetracaine 1 ml 05/08/21 16:02 05/08/21 16:13 Lidocaine/Epinephrine/Tetracaine Soln 1 Ml TOP 05/08/21 16:03 1 ml ONETIME ONE Administration Departure - Departure Time of Disposition: 16:17 Disposition: Home, Self-Care 01 Condition: Good Clinical Impression: Infected finger - Discharge Information *PRESCRIPTION DRUG MONITORING PROGRAM REVIEWED*: Yes *COPY OF PRESCRIPTION DRUG MONITORING REPORT IN PATIENT KEL: No Prescriptions: oxyCODONE HCl/Acetaminophen [Percocet 10-325 mg Tablet] 1 tab PO Q6H PRN #20 tablet PRN Reason: Pain Doxycycline [Vibramycin] 100 mg PO BID 7 Days #14 tab Instructions: Paronychia, [id number] Referrals: Chris Baker MD [Primary Care Provider] - Forms: ED Department Discharge Additional Instructions: You were evaluated in the ER today regarding your ongoing skin infection. It does appear that you have a paronychia. The area was lanced at today's visit, to allow some drainage. You may soak the finger in some Epsom salts to provide further relief of the pain. You were given an antibiotic, doxycycline 100 mg please take as prescribed until the course is done or told otherwise by different provider. Please note that this antibiotic will take at least 48 hours to start working appropriately. You will need to stop taking the cephalexin that you have already been prescribed. This antibiotic can cause some sun sensitivity, so if you are going to be outside, please utilize sunscreen judiciously. You may try to use heat/ice packs to the area to help reduce pain/swelling. You may take 500 mg Tylenol or 600 mg ibuprofen every 6 hours as needed for further pain relief. Do not exceed 4000 mg Tylenol or 3200 mg ibuprofen in a 24-hour time span. You were given a prescription for a strong pain medication, oxycodone/acetaminophen 10/325 mg, please take 1 tab every 6 hours as needed for pain not relieved by Tylenol or ibuprofen alone. Please note this medication does contain Tylenol in it, so do not take more than 4000 mg in a 24-hour time span. These medications can be addictive, so please take as few as possible to achieve adequate pain control. These meds can also be quite constipating, recommend that you increase your oral fluid intake and take a stool softener like MiraLAX while taking these medications. Do not drive while taking this medication. This medication was electronically sent to the [place] [facility] [employer] [facility]. Please return to the ER at any time if your symptoms change or worsen. Sepsis Event Note (ED) - Evaluation Sepsis Screening Result: No Definite Risk - Focused Exam Vital Signs: Vital Signs Temp Pulse Resp BP Pulse Ox 05/08/21 15:56 97.0 F 74 20 92/70 97
== END 2021-05-08 16:48 | disposition home or self-care (01) ==
LOC: JD.ED 15:46
DX: L02.511 Cutaneous abscess of right hand (principal); Z72.0 Tobacco use; Z88.0 Allergy status to penicillin; Z91.030 Bee allergy status; Z79.899 Other long term (current) drug therapy
CPT/HCPCS: 10060; 99282-25; 99283

== ENCOUNTER 2021-08-19 10:04 | Emergency (ER) | payer BC, MEDICARE ==
[2021-08-19 10:33] VITALS: BP 98/72; PULSE 86
[2021-08-19] MEDS ORDERED: HYDROmorphone 1 MG/ML Syringe IM ONE (10:50)
--- NOTE | 2021-08-19 11:17 | CT ---
CT cervical spine Technique: Multiple axial sections were obtained from above C1 inferiorly to the bottom of T2. Reconstructed coronal and sagittal images were obtained. Findings: Mild kyphosis is noted within the cervical spine which most likely is positional. Mild scattered degenerative change is noted within the apophyseal joints. Moderate disc space narrowing is noted at C5-6 which shows vacuum phenomena. Slight posterolateral spurring is noted at C5-6 on both sides. Anterior osteophytes are also noted at C5-6. Degenerative change is noted between the dens and anterior arch of C1. Very slight spondylolisthesis is noted at C4-5 with degenerative apophyseal change. Scarring is noted within both upper lungs. No bony central or bony neural foraminal stenosis is seen. No cervical spine fracture is seen. Impression: 1. Mild degenerative change as noted above. Slight scarring within both lung apices. 2. No acute fracture is seen on CT study of the cervical spine. Diagnostic code #2
--- NOTE | 2021-08-19 11:17 | CT ---
Head CT Technique: Multiple axial sections through the brain were obtained. Intravenous contrast was not utilized. Reconstructed coronal and sagittal images were obtained. Comparison: Prior head CT study of 06/12/18. Findings: Ventricles along with basal cisterns and sulci over the convexities are within normal limits for the patient's age. No abnormal parenchymal densities are seen. No evidence of intracranial hemorrhage is seen. No midline shift or mass-effect is seen. Bone window settings were reviewed. Visualized mastoid sinuses and paranasal sinuses show nothing acute. No acute calvarial abnormality is appreciated. Impression: 1. Nothing acute is seen on noncontrast head CT study. Diagnostic code #1
--- NOTE | 2021-08-19 11:21 | CT ---
CT maxillofacial Technique: Multiple axial sections were obtained through the maxillofacial structures. Reconstructed coronal and sagittal images were obtained. Comparison: Prior CT maxillofacial study of 11/29/17. Findings: Minimal mucosal thickening is seen within the left maxillary sinus. Minimal mucosal thickening is seen within the sphenoid sinus. Mastoid sinuses are clear. No air-fluid levels are seen within the paranasal sinuses. No acute facial bone fracture is seen. Impression: 1. Minimal mucosal thickening within the paranasal sinuses. 2. No acute facial bone abnormality is seen. Diagnostic code #2
--- NOTE | 2021-08-19 11:30 | CR ---
Chest: PA and lateral views of the chest were obtained. Comparison: Prior chest x-ray of 12/11/17. Minimal scarring is seen within the right cardiophrenic angle. Lungs otherwise are clear with no acute parenchymal change. Heart size and mediastinum are within normal limits. No acute bony abnormality is appreciated. Impression: 1. Minimal scarring within the right cardiophrenic angle. 2. Nothing acute is seen on 2 view chest x-ray. Diagnostic code #2
--- NOTE | 2021-08-19 11:30 | CR ---
Left wrist: 4 views of the left wrist were obtained as well as an additional navicular view. Comparison: No prior wrist exam is available. Joint spaces are preserved. No acute fracture, dislocation or other bony abnormality is appreciated. Impression: 1. Nothing acute is seen on left wrist exam. Diagnostic code #1
--- NOTE | 2021-08-19 12:37 | EDM.PDOC ---
ED HPI GENERAL MEDICAL PROBLEM - General Chief Complaint: Trauma Stated Complaint: facial injury wrist pain Time Seen by Provider: 08/19/21 10:29 Source of Information: Reports: Patient History Limitations: Reports: No Limitations - History of Present Illness INITIAL COMMENTS - FREE TEXT/NARRATIVE: The patient presents with pain after a fall. She was traveling through [place] on her way home and she was at a rest stop and she trip on the sidewalk and she landed on her face and left arm. She has a headache, jaw pain on both sides but right worse then left. She also has left wrist pain and upper back and shoulder pain. She had no LOC. She said she wet herself after leaving the rest area. That has never happened before. She has no chest pain, abdominal pain, hip or leg pain. Her neck pain. Onset: Sudden Duration: Day(s): (yesterday) Location: Reports: Head Jaw Pain Score (Numeric/FACES): 8 - Related Data Allergies Allergy/AdvReac Type Severity Reaction Status Date / Time penicillin Allergy Hives Verified 08/19/21 10:33 bees Allergy Swelling Uncoded 08/19/21 10:33 Home Meds: Home Meds DULoxetine [Cymbalta] 30 mg PO TID 06/26/15 [History] Gabapentin [Neurontin] 900 mg PO TID 06/26/15 [History] Levothyroxine [Synthroid] 88 mcg PO DAILY 06/26/15 [History] rOPINIRole [Requip] 0.25 mg PO BEDTIME 11/29/17 [History] LORazepam [Ativan] 0.5 mg PO Q8H PRN #10 tab 12/31/17 [Rx] Acetaminophen/HYDROcodone [[place] 325-5 MG] 1 tab PO Q8HR PRN #6 tablet 06/12/18 [Rx] Cyclobenzaprine [Flexeril] 10 mg PO DAILY 08/19/21 [History] oxyCODONE HCl/Acetaminophen [Percocet 5-325 mg Tablet] 1 - 2 each PO Q6HR PRN #20 tablet 08/19/21 [Rx] Past Medical History HEENT History: Reports: Otitis Media Respiratory History: Reports: Other (See Below) Other Respiratory History: "spots on lungs" Needs to have biopsy done. 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 Other [employer] History: lumpectomy x2 Musculoskeletal History: Reports: Connective Tissue Disease, Fibromyalgia Neurological History: Reports: Other (See Below) Other Neuro History: fibromalgia, Linda's syndrome Psychiatric History: Reports: Depression Endocrine/Metabolic History: Reports: Other (See Below) Other Endocrine/Metabolic History: Hashimotos, Venecia's - Infectious Disease History Infectious Disease History: Reports: Chicken Pox - Past Surgical History Musculoskeletal Surgical History: Reports: Arthroscopic Knee Social & Family History - Family History Family Medical History: No Pertinent Family History - Tobacco Use Tobacco Use Status *Q: Current Every Day Tobacco User Years of Tobacco use: 5 Packs/Tins Daily: 0.2 - Caffeine Use Caffeine Use: Reports: Coffee - Recreational Drug Use Recreational Drug Use: No Review of Systems - Review of Systems Review Of Systems: See Below Constitutional: Reports: No Symptoms Eyes: Reports: No Symptoms Ears: Reports: No Symptoms Nose: Reports: No Symptoms Mouth/Throat: Reports: No Symptoms Respiratory: Reports: No Symptoms Cardiovascular: Reports: No Symptoms GI/Abdominal: Reports: No Symptoms Genitourinary: Reports: No Symptoms Musculoskeletal: Reports: Other (left wrist pain) ED EXAM, GENERAL - Physical Exam Exam: See Below Exam Limited By: No Limitations General Appearance: Alert, No Apparent Distress Eye Exam: Bilateral Eye: EOMI Ears: Normal External Exam Nose: Normal Inspection Throat/Mouth: Other (Pain upon palpation to both sides of the jaw with right worse then left) Head: Other (pain to the right side of her head) Neck: Tender Midline Respiratory/Chest: No Respiratory Distress, Lungs Clear, Normal Breath Sounds Cardiovascular: Regular Rate, Rhythm, No Edema, No Murmur GI/Abdominal: Soft, Non-Tender, No Organomegaly, No Mass Back Exam: Normal Inspection Extremities: Normal Inspection Course - Vital Signs Last Recorded V/S: Last Vital Signs Temp 98.3 F 08/19/21 10:27 Pulse 86 08/19/21 10:27 Resp 16 08/19/21 10:27 BP 98/72 08/19/21 10:27 Pulse Ox 96 08/19/21 10:27 - Orders/Labs/Meds Meds: Medications Discontinued Medications Generic Name Dose Route Start Last Admin Trade Name Freq PRN Reason Stop Dose Admin Hydromorphone HCl 1 mg 08/19/21 10:50 08/19/21 11:18 Hydromorphone 1 Mg/Ml Syringe IM 08/19/21 10:51 1 mg ONETIME ONE Administration - Re-Assessments/Exams Free Text/Narrative Re-Assessment/Exam: 08/19/21 12:40 I ordered dilaudid 1mg IM, CT of her head, maxillofacial bones, cervical spine, left wrist and CXR. All the CTs and x-rays look good. I will give her something for pain. 08/19/21 12:48 She may also have a concussion. Departure - Departure Time of Disposition: 12:50 Disposition: Home, Self-Care 01 Condition: Good Clinical Impression: Jaw pain Fall Qualifiers: Encounter type: initial encounter Qualified Code(s): W19.XXXA - Unspecified fall, initial encounter Left wrist sprain Qualifiers: Encounter type: initial encounter Qualified Code(s): S63.502A - Unspecified sprain of left wrist, initial encounter Cervical strain, acute Qualifiers: Encounter type: initial encounter Qualified Code(s): S16.1XXA - Strain of muscle, fascia and tendon at neck level, initial encounter - Discharge Information *PRESCRIPTION DRUG MONITORING PROGRAM REVIEWED*: Not Applicable *COPY OF PRESCRIPTION DRUG MONITORING REPORT IN PATIENT KEL: Not Applicable Prescriptions: oxyCODONE HCl/Acetaminophen [Percocet 5-325 mg Tablet] 1 - 2 each PO Q6HR PRN #20 tablet PRN Reason: Pain Referrals: Chris Baker MD [Primary Care Provider] - 1 Week Forms: ED Department Discharge Additional Instructions: Drink plenty of fluids. Take tylenol or motrin for pain. If that does not help, try the percocet. Ice the areas that hurt for 15 minutes 3 times per day for 2 days. Please return if you are worse. Sepsis Event Note (ED) - Focused Exam Vital Signs: Vital Signs Temp Pulse Resp BP Pulse Ox 08/19/21 10:27 98.3 F 86 16 98/72 96
== END 2021-08-19 13:12 | disposition home or self-care (01) ==
LOC: JD.ED 10:04
DX: S63.502A Unspecified sprain of left wrist, initial encounter (principal); S16.1XXA Strain of muscle, fascia and tendon at neck level, initial encounter; R68.84 Jaw pain; Z88.0 Allergy status to penicillin; Z91.030 Bee allergy status; Z72.0 Tobacco use; W01.0XXA Fall on same level from slipping, tripping and stumbling without subsequent striking against object, initial encounter; Y92.009 Unspecified place in unspecified non-institutional (private) residence as the place of occurrence of the external cause
CPT/HCPCS: 70450; 70486; 71046; 72125; 73110; 96372; 99284; J1170

== ENCOUNTER 2022-06-21 08:33 | Emergency (ER) | payer BC, MEDICARE ==
[2022-06-21 09:22] VITALS: PULSE 78
[2022-06-21] MEDS ORDERED: Morphine 2 MG/ML SYRINGE IVPUSH ONE ×2 (09:25)
[2022-06-21] MEDS ORDERED: Ondansetron 4 MG/2 ML SDV IVPUSH ONE (09:32)
[2022-06-21] MEDS ORDERED: Sodium Chloride 0.9% 10 ML Syringe FLUSH PRN ×2 (10:18→10:30)
[2022-06-21] MEDS ORDERED: Iopamidol 755 Mg/ML 100 ML Bottle IVPUSH ONE ×2 (10:18→10:30)
[2022-06-21] MEDS ORDERED: Sodium Chloride 0.9% 100 ML IV SCH ×2 (10:30)
[2022-06-21] MEDS ORDERED: Acetaminophen/oxyCODONE 325-5 MG Tab PO ONE ×2 (11:23→13:52)
[2022-06-21 15:10] VITALS: BP 96/62
== END 2022-06-21 13:50 | disposition home or self-care (01) ==
LOC: JD.ED 08:33
DX: R07.89 Other chest pain (principal); Z88.0 Allergy status to penicillin; Z91.030 Bee allergy status; Z79.899 Other long term (current) drug therapy
CPT/HCPCS: 36415; 71045; 71275; 80053; 84484; 85025; 85379; 85610; 85730; 93005; 96374; 96375; 99285; A9270; J2270; J2405; J3490; Q9967